=== PATIENT | female | born 1935 | race Caucasian/White ===

== ENCOUNTER 2016-09-10 23:19 | Emergency (ER) | payer OTHER ==
[~2016-09-10 23:19] MED LIST: ACYC5CRE4 TOP; ASPEC81 PO; B-COTAB18 PO; BIOF500T PO; KETO1DRO13 OPB; LEVO112T2 PO; NRN/300 PO; [UNRECOGNIZED DRUG - OTHER] PO
[2016-09-10 23:25] VITALS: TEMP 36.5; Ht 170.2 cm
[2016-09-10 23:29] VITALS: O2SAT 98
--- NOTE | 2016-09-10 23:39 | EMERGENCY ROOM VISIT NOTE ---
History Report prepared by Simeonibpatrick: Aubree Colon Under the Supervision of: Dr. Zheng Mejia M.D. First contact with patient: 23:20 Chief Complaint: ILLNESS Stated Complaint: VOMITING,NAUSEA,WEAKNESS History of Present Illness The patient is a 81 year old female who presents to the Emergency Room with complaints of persistent nausea and vomiting over the past few hours. The patient is under the impression that her symptoms are related to food poisoning. Today, the patient ate mac and cheese, green beans, and cereal with milk. She is unsure if anything that she ate was , as her caregiver makes her meals. Denies chest pain, shortness of breath, abdominal pain, hematemesis, hematochezia, urinary symptoms, or other complaints. Source of History: patient Onset: a few hours ago Position: other (GI) Quality: other (nausea and vomiting) Timing: other (persistent) Associated Symptoms: No SOB, No abdominal pain, No chest pain, No hematochezia, No urinary symptoms Review of Systems See HPI for pertinent positives & negatives. A total of 10 systems reviewed and were otherwise negative. Past Medical & Surgical Medical Problems: (1) Hypertension Nos (2) Varicose Veins Lower Extrem W Other Complications Surgical Problems: (1) History of appendectomy (2) History of hysterectomy Family History Noncontributory secondary to age. Social History Smoking Status: Never Smoker Alcohol Use: none Drug Use: none Marital Status: single Housing Status: snf Occupation Status: retired Current/Historical Medications Scheduled B-Complex Vitamins (Vitamin B Complex), 1 TAB PO DAILY Bioflavonoid Products (Linda-C), 1 TAB PO DAILY Levothyroxine Sodium (Synthroid), 112 MCG PO DAILY@0400 Ondasetron Odt (Zofran Odt), 4 MG SL Q6H Allergies Coded Allergies: Penicillins (Unverified Allergy, Unknown, UNKNOWN, 09/10/16) Anesthetics, Halogenated (Verified Adverse Reaction, Severe, "ANESTHESIA" - PT HAS REVERSE EFFECT, 09/10/16) Physical Exam Vital Signs Date Time Temp Pulse Resp B/P Pulse Ox O2 Delivery O2 Flow Rate FiO2 09/11/16 03:02 95 09/11/16 01:00 83 20 154/68 95 Room Air 09/11/16 00:01 93 18 118/94 98 Room Air 09/10/16 23:34 96 09/10/16 23:29 98 Room Air 09/10/16 23:29 98 Room Air 09/10/16 23:25 36.5 95 18 179/110 95 Room Air Physical Exam GENERAL: Patient is a healthy-appearing well-nourished 81 year old female HEAD: Normocephalic atraumatic EYES: Ocular movements intact pupils equal and react to light OROPHARYNX mucous membranes are moist no exudates present no erythema or edema present NECK: Supple no nuchal rigidity CHEST: Good equal expansion LUNGS: Clear and equal to auscultation CARDIAC: Normal S1 and S2 ABDOMEN: Soft nontender no guarding BACK: No CVA tenderness EXTREMITIES: No pain upon palpation normal muscle strength in all groups no clubbing cyanosis or edema NEURO: Patient is following commands is answering questions appropriately. Alert and oriented x3 Cranial Nerves 2-12 grossly intact Medical Decision & Procedures ER Provider Diagnostic Interpretation: CT results as stated below per my review and radiologist interpretation: CT ABDOMEN & PELVIS: No priors. Prominent fluid within GI tract to level of rectum. Dilated loops of proximal small bowel with decompression of distal small bowel. No discrete transition point is identified through there is gradual tapering of small bowel caliber at distal small bowel. Differential includes ileus/enteritis versus partial obstructive process. Cholelithiasis. Hiatal hernia. Adrenal hyperplasia with questionable mild nodularity in hilar regions. Diverticulosis without diverticulitis. Nonvisualized appendix. Suspect prior appendectomy. Additional chronic/incidental findings. Radiologist: Marshal Lezama MD Laboratory Results 09/10/16 23:35 Red Blood Count 4.65, Mean Corpuscular Volume 90.3, Mean Corpuscular Hemoglobin 31.2, Mean Corpuscular Hemoglobin Concent 34.5, Mean Platelet Volume 10.6, Neutrophils (%) (Auto) 91.7, Lymphocytes (%) (Auto) 3.9, Monocytes (%) (Auto) 3.4, Eosinophils (%) (Auto) 0.6, Basophils (%) (Auto) 0.1, Neutrophils # (Auto) 16.88, Lymphocytes # (Auto) 0.72, Monocytes # (Auto) 0.62, Eosinophils # (Auto) 0.11, Basophils # (Auto) 0.01 09/10/16 23:35 Test 09/10/16 23:35 09/10/16 23:59 09/11/16 00:00 09/11/16 00:02 White Blood Count 18.40 K/uL (4.8-10.8) Red Blood Count 4.65 M/uL (4.2-5.4) Hemoglobin 14.5 g/dL (12.0-16.0) Hematocrit 42.0 % (37-47) Mean Corpuscular Volume 90.3 fL (80-100) Mean Corpuscular Hemoglobin 31.2 pg (25-34) Mean Corpuscular Hemoglobin Concent 34.5 g/dl (32-36) Platelet Count 270 K/uL (130-400) Mean Platelet Volume 10.6 fL (7.4-10.4) Neutrophils (%) (Auto) 91.7 % Lymphocytes (%) (Auto) 3.9 % Monocytes (%) (Auto) 3.4 % Eosinophils (%) (Auto) 0.6 % Basophils (%) (Auto) 0.1 % Neutrophils # (Auto) 16.88 K/uL (1.4-6.5) Lymphocytes # (Auto) 0.72 K/uL (1.2-3.4) Monocytes # (Auto) 0.62 K/uL (0.11-0.59) Eosinophils # (Auto) 0.11 K/uL (0-0.5) Basophils # (Auto) 0.01 K/uL (0-0.2) RDW Standard Deviation 48.5 fL (36.4-46.3) RDW Coefficient of Variation 14.7 % (11.5-14.5) Immature Granulocyte % (Auto) 0.3 % Immature Granulocyte # (Auto) 0.06 K/uL (0.00-0.02) Anion Gap 11.0 mmol/L (3-11) Estimated GFR () 83.2 Estimated GFR (Non- 71.8 BUN/Creatinine Ratio 29.4 (10-20) Calcium Level 9.0 mg/dl (8.5-10.1) Total Bilirubin 0.3 mg/dl (0.2-1) Direct Bilirubin < 0.1 mg/dl (0-0.2) Aspartate Amino Transf (AST/SGOT) 22 U/L (15-37) Alanine Aminotransferase (ALT/SGPT) 38 U/L (12-78) Alkaline Phosphatase 75 U/L (45-117) Total Creatine Kinase 78 U/L (26-192) Creatine Kinase MB 2.6 ng/ml (0.5-3.6) Creatine Kinase MB Ratio 3.3 (0-3.0) Troponin I < 0.015 ng/ml (0-0.045) Total Protein 7.3 gm/dl (6.4-8.2) Albumin 3.6 gm/dl (3.4-5.0) Thyroid Stimulating Hormone (TSH) 4.100 uIu/ml (0.300-4.500) Influenza Type A (RT-PCR) Neg for Influ A (NEG) Influenza Type B (RT-PCR) Neg for Influ B (NEG) Urine Color YELLOW Urine Appearance CLEAR (CLEAR) Urine pH 6.0 (4.5-7.5) Urine Specific [place] > 1.045 (1.000-1.030) Urine Protein NEG (NEG) Urine Glucose (UA) NEG (NEG) Urine Ketones NEG (NEG) Urine Occult Blood NEG (NEG) Urine Nitrite NEG (NEG) Urine Bilirubin NEG (NEG) Urine Urobilinogen NEG (NEG) Urine Leukocyte Esterase NEG (NEG) Bedside Glucose 125 mg/dl (70-90) Labs reviewed by ED physician. Medications Administered Medications (Trade) Dose Ordered Sig/Tabitha Route Start Time Stop Time Status Last Admin Dose Admin Sodium Chloride (Nss 500ml) 500 ml @ 999 mls/hr Q31M STAT IV 09/10/16 23:46 09/11/16 00:16 DC 09/11/16 00:12 999 MLS/HR Ondansetron HCl (Zofran Inj) 4 mg NOW STAT IV 09/10/16 23:46 09/10/16 23:48 DC 09/10/16 23:52 4 MG Metoclopramide HCl (Reglan Inj) 10 mg STK-MED ONCE .ROUTE 09/11/16 01:25 09/11/16 01:26 DC 09/11/16 01:28 10 MG ECG Indication: vomiting Rate (beats per minute): 89 Rhythm: normal sinus Findings: RBBB, no acute ischemic change, no ectopy ED Course 2351: Past medical records reviewed. The patient was evaluated in room B6. A complete history and physical examination was performed. Ordered Zofran Inj 4 mg IV, NSS 500 ml @ 999 mls/hr IV. 0125: Ordered Reglan Inj 10 mg IV. 0230: Upon reexamination the patient is feeling much better. I discussed results and treatment plan with the patient. She verbalizes agreement and understanding. The patient is ready for discharge. 0245: Ordered Ondansetron HCl 1 homepack PO. Medical Decision Differential diagnosis: Etiologies such as gastroenteritis, food borne illness, infections, appendicitis , diverticulitis, inflammatory bowel disease, obstruction, GI bleed, biliary pathology, as well as others were entertained. This is an 81-year-old female who presents emergency department complaining of vomiting. Serial abdominal examinations were performed on the patient in the emergency department and at no time did the patient exhibited a surgical abdomen. An IV was established, the patient given normal saline bolus and 4 mg Zofran. The patient then had further episode of emesis and at this point she was given 10 mg of Reglan. The patient was sent for a CAT scan of the abdomen and pelvis which was concerning for partial small bowel obstruction however I will note that the patient is again nontender on examination and at this point is holding down fluids. The patient was given are juice in the emergency department and was observed for 4 hours. The patient is requesting to go home at this point. She does have an elevation in her white blood count however I believe this is most like due to vomiting. She has a normal EKG as well as normal cardiac proteins. She again had a normal abdominal examination. I encouraged patient to return if she began vomiting again developed any sort of abdominal pain. Patient was in agreement with the treatment plan. Impression Primary Impression: Gastritis Scribe Attestation The scribe's documentation has been prepared under my direction and personally reviewed by me in its entirety. I confirm that the note above accurately reflects all work, treatment, procedures, and medical decision making performed by me. Departure Information Dispostion Home / Self-Care Prescriptions Ondasetron Odt (ZOFRAN ODT) 4 Mg Tab 4 MG SL Q6H for Nausea, #6 TAB Prov: Zheng Mejia MD 09/11/16 Referrals Rochelle Paez (PCP) Patient Instructions ED Diet Vomiting Diarrhea, ED Gastritis, My [facility] Additional Instructions Return if you develops severe abdominal pain or vomiting is out of control Advance diet slowly You have been examined and treated today on an emergency basis only. This is not a substitute for, or an effort to provide, complete comprehensive medical care. It is impossible to recognize and treat all injuries or illnesses in a single emergency department visit. It is therefore important that you follow up closely with your PCP. Call as soon as possible for an appointment. Thank you for your time and consideration. I look forward to speaking with you again soon. Please don't hesitate to call us if you have any questions. Problem Qualifiers Primary Impression: Gastritis Gastritis type: unspecified gastritis Chronicity: acute Gastritis bleeding : without bleeding Qualified Codes: K29.00 - Acute gastritis without bleeding
[2016-09-10] MEDS ORDERED: SODIUM CHLORIDE 0.9% 500ML 500 ML IV STA (23:46)
[2016-09-10] MEDS ORDERED: ONDANSETRON INJ 2 MG/ML 2 ML VIAL IV STA (23:46)
[2016-09-10 23:51] LABS: BASO % 0.1 %; BASO ABS # 0.01 K/uL (0-0.2); COMPLETE YES; EOS % 0.6 %; IG% 0.3 %; LYMPH % 3.9 %; LYMPH ABS # 0.72 K/uL (1.2-3.4); MEAN CELL VOLUME 90.3 fL (80-100); MEAN CORPUSCULAR HEMOGLOBIN 31.2 pg (25-34); MEAN CORPUSCULAR HGB CONC 34.5 g/dl (32-36); MEAN PLATELET VOLUME 10.6 fL (7.4-10.4); MONO % 3.4 %; NEUT % 91.7 %; PLATELET COUNT 270 K/uL (130-400); RED BLOOD COUNT 4.65 M/uL (4.2-5.4)
[2016-09-11 00:11] LABS: ALT/SGPT 38 U/L (12-78); AST/SGOT 22 U/L (15-37); BLOOD UREA NITROGEN 23 mg/dl (7-18); BUN/CREATININE RATIO 29.4 (10-20); CARBON DIOXIDE 27 mmol/L (21-32); CHLORIDE 106 mmol/L (98-107); CREATININE 0.78 mg/dl (0.60-1.20); GLUCOSE 133 mg/dl (70-99); POTASSIUM 3.7 mmol/L (3.5-5.1); SODIUM 144 mmol/L (136-145)
[2016-09-11 00:22] LABS: ALKALINE PHOSPHATASE 75 U/L (45-117); CKMB/CK RATIO 3.3 (0-3.0)
[2016-09-11] MEDS ORDERED: OPTIRAY 320 IV PRN (00:45)
[2016-09-11] MEDS ORDERED: METOCLOPRAMIDE HCL INJ 5 MG/ML 2 ML VIAL IV STA (01:25)
[2016-09-11] MEDS ORDERED: METOCLOPRAMIDE HCL INJ 5 MG/ML 2 ML VIAL ONE (01:25)
[2016-09-11 02:02] LABS: URINE APPEARANCE CLEAR (CLEAR); URINE BILIRUBIN NEG (NEG); URINE COLOR YELLOW; URINE NITRITE NEG (NEG); URINE SPECIFIC GRAVITY > 1.045 (1.000-1.030); UROBILINOGEN NEG (NEG)
[2016-09-11 02:15] LABS: INFLUENZA A PCR Neg for Influ A (NEG); INFLUENZA B PCR Neg for Influ B (NEG)
[2016-09-11 02:23] LABS: MANUAL MICROSCOPIC REQUIRED? NO; REVIEW REQ? NO
[2016-09-11] MEDS ORDERED: ONDA4TAB10 SL (02:36)
[2016-09-11] MEDS ORDERED: ONDANSETRON HOME PACK 4MG OD TAB PO ONE (02:45)
[2016-09-11 03:39] VITALS: BP 154/99; PULSE 75; O2SAT 98
--- NOTE | 2016-09-11 07:49 | DIAGNOSTIC IMAGING REPORT ---
ABDOMEN AND PELVIS CT WITH IV CONTRAST CT DOSE: 1232.84 mGy.cm HISTORY: Generalized abdominal pain. TECHNIQUE: Multiaxial CT images of the abdomen and pelvis were performed following the use of intravenous contrast. COMPARISON STUDY: None. FINDINGS: The lung bases are essentially clear. No pneumoperitoneum. No pneumatosis. No suspicious lytic or blastic osseous lesions. Multiple small gallstones. A 7 mm hypodense lesion within the right hepatic dome. This is too small to characterize but favors a benign cyst. The spleen, adrenal glands, pancreas, and kidneys are unremarkable. No retroperitoneal lymphadenopathy. The bladder is not well-distended but appears unremarkable. The uterus is surgically absent. The appendix appears surgically absent. No bowel wall thickening or obstruction. Colonic diverticulosis. Fluid-filled large and small bowel. Few prominent fluid-filled loops of small bowel within the left upper quadrant are not significant dilated. There is no transition point to suggest an obstruction. IMPRESSION: 1. Fluid-filled loops of large and small bowel. This favors a gastroenteritis. No evidence for bowel obstruction. 2. Cholelithiasis. 3. Diverticulosis. Electronically signed by: Paulo Funes M.D. 09/11/2016 7:46 AM Dictated Date/Time: 09/11/2016 7:42 AM
== END 2016-09-11 03:40 | disposition home or self-care (01) ==
LOC: EDBD 23:19 → C.EDB 23:20
DX: K29.00 Acute gastritis without bleeding (principal); I10 Essential (primary) hypertension; I83.899 Varicose veins of unspecified lower extremity with other complications; Z79.899 Other long term (current) drug therapy

== ENCOUNTER 2017-02-02 16:49 | Emergency (ER) | payer OTHER ==
[~2017-02-02] VITALS: Ht 170.2 cm; Wt 100.0 kg
[~2017-02-02 16:49] MED LIST changes: -ACYC5CRE4 TOP; -ASPEC81 PO; -KETO1DRO13 OPB; -NRN/300 PO; +ONDA4TAB10 SL; -[UNRECOGNIZED DRUG - OTHER] PO
[2017-02-02 16:55] VITALS: TEMP 36.3; Ht 170.2 cm; Wt 100.0 kg
[2017-02-02] MEDS ORDERED: DIAZEPAM INJ 5 MG/ML 2 ML CARP IV STA (17:54)
[2017-02-02 18:22] LABS: BASO % 0.3 %; BASO ABS # 0.03 K/uL (0-0.2); COMPLETE YES; HEMATOCRIT 42.9 % (37-47); IG% 0.3 %; LYMPH % 17.9 %; LYMPH ABS # 1.63 K/uL (1.2-3.4); MEAN CELL VOLUME 91.3 fL (80-100); MEAN CORPUSCULAR HEMOGLOBIN 30.6 pg (25-34); MEAN CORPUSCULAR HGB CONC 33.6 g/dl (32-36); MEAN PLATELET VOLUME 10.1 fL (7.4-10.4); MONO % 5.8 %; NEUT % 74.7 %; PLATELET COUNT 259 K/uL (130-400); WHITE BLOOD COUNT 9.13 K/uL (4.8-10.8)
[2017-02-02] MEDS ORDERED: ACYC5CRE4 TOP (18:27)
[2017-02-02] MEDS ORDERED: ONDA4TAB10 SL (18:27)
[2017-02-02 18:37] LABS: INR 0.9 (0.9-1.1); PROTHROMBIN TIME (PATIENT) 9.6 SECONDS (9.0-12.0)
[2017-02-02 18:45] LABS: ALT/SGPT 27 U/L (12-78); AST/SGOT 21 U/L (15-37); BLOOD UREA NITROGEN 16 mg/dl (7-18); BUN/CREATININE RATIO 26.9 (10-20); CALCIUM 9.4 mg/dl (8.5-10.1); CARBON DIOXIDE 26 mmol/L (21-32); CHLORIDE 107 mmol/L (98-107); CREATININE 0.59 mg/dl (0.60-1.20); GLUCOSE 102 mg/dl (70-99); MAGNESIUM 2.4 mg/dl (1.8-2.4); SODIUM 142 mmol/L (136-145)
[2017-02-02 18:56] LABS: ALKALINE PHOSPHATASE 75 U/L (45-117); PHOSPHORUS 3.1 mg/dl (2.5-4.9)
[2017-02-02 19:20] LABS: URINE APPEARANCE CLEAR (CLEAR); URINE BILIRUBIN NEG (NEG); URINE COLOR YELLOW; URINE NITRITE NEG (NEG); URINE PH 5.5 (4.5-7.5); URINE SPECIFIC GRAVITY 1.013 (1.000-1.030); UROBILINOGEN NEG (NEG)
[2017-02-02 19:22] LABS: MANUAL MICROSCOPIC REQUIRED? NO; REVIEW REQ? NO
--- NOTE | 2017-02-02 19:27 | DIAGNOSTIC IMAGING REPORT ---
HEAD CT NONCONTRAST CT DOSE: 623.48 mGy.cm HISTORY: EVALUATE ALTERED MENTAL STATUS/WEAKNESS TECHNIQUE: Multiaxial CT images of the head were performed without the use of intravenous contrast. Automated exposure control was utilized for this study. Comparison: Head CT 10/18/2014. Findings: The paranasal sinuses and mastoid air cells are clear. The calvarium and skull base are intact. The ventricles and sulci are within normal limits. There is no mass, hematoma, midline shift, or acute infarct. Questionable hypodensities within the inferior temporal lobes and cerebellar hemispheres are likely artifactual. Impression: No acute intracranial abnormality. Electronically signed by: Paulo Funes M.D. 02/02/2017 7:25 PM Dictated Date/Time: 02/02/2017 7:21 PM
[2017-02-02 19:29] VITALS: O2SAT 98
--- NOTE | 2017-02-02 19:35 | DIAGNOSTIC IMAGING REPORT ---
CHEST ONE VIEW PORTABLE HISTORY: EVALUATE ALTERED MENTAL STATUS/WEAKNESS COMPARISON: Chest 10/18/2014. FINDINGS: The lungs are mildly hyperexpanded. Left basilar linear densities likely represent subsegmental atelectasis or scarring. The lungs are otherwise clear. The heart is normal in size. No pleural effusions. No pneumothorax. Severe osteoarthritis within the right shoulder, unchanged. IMPRESSION: No acute process. Electronically signed by: Paulo Funes M.D. 02/02/2017 7:34 PM Dictated Date/Time: 02/02/2017 7:32 PM
[2017-02-02 21:11] VITALS: BP 212/112; PULSE 70; O2SAT 99
--- NOTE | 2017-02-02 21:29 | EMERGENCY ROOM VISIT NOTE ---
History Report prepared by Benito: Jessie Griggs Under the Supervision of: Dr. Ayaan Saul D.O. First contact with patient: 17:43 Chief Complaint: DIZZY Stated Complaint: TREMORS,VERTIGO,NUMBNESS/TINGLING IN RIGHT FOOT Nursing Triage Summary: triage note: pt reports at 1330 sudden onset of dizziness and weakness. pt reports numbness in bilat feet. pt reports she was seen at walk [facility] and sent to ed for further eval. History of Present Illness The patient is an 81 year old female who presents to the Emergency Room with complaints of persistent dizziness starting 4 hours ago. She lives alone and was waiting her caregiver was to come at 1330. She suddenly started feeling a warm sensation in her right leg and she started shaking. She is feeling off balance. She is not falling more to one side or the other. She has a history of vertigo, but she has not been this dizzy before. She notes numbness and tingling in both her feet from the ankles down. 2-3 days ago she started having some cold symptoms. She denies any history of stroke. Source of History: patient Onset: 4 hours ago Position: other (global) Quality: other (dizziness) Timing: other (persistent) Associated Symptoms: + numbness Note: Pt reports shaking, warm sensation in right leg, off balance. Review of Systems See HPI for pertinent positives & negatives. A total of 10 systems reviewed and were otherwise negative. Past Medical & Surgical Medical Problems: (1) Hypertension Nos (2) Varicose Veins Lower Extrem W Other Complications Surgical Problems: (1) History of appendectomy (2) History of hysterectomy Family History Noncontributory secondary to age. Social History Smoking Status: Never Smoker Alcohol Use: none Drug Use: none Marital Status: single [facility] Status: [facility] Occupation Status: retired Current/Historical Medications Scheduled B-Complex Vitamins (Vitamin B Complex), 1 TAB PO DAILY Bioflavonoid Products (Linda-C), 1 TAB PO DAILY Levothyroxine Sodium (Synthroid), 112 MCG PO DAILY@0400 Scheduled PRN Acyclovir Topical (Zovirax), 1 APPLN TOP 5XD PRN for HERPES OUTBREAK Ondasetron Odt (Zofran Odt), 4 MG SL Q6H PRN for Nausea or Vomiting Allergies Coded Allergies: Penicillins (Verified Allergy, Severe, HIVES, 02/02/17) Anesthetics, Halogenated (Verified Adverse Reaction, Severe, "LOWERS B/P" , 02/02/17) Physical Exam Vital Signs Date Time Temp Pulse Resp B/P (MAP) Pulse Ox O2 Delivery O2 Flow Rate FiO2 02/02/17 21:11 70 16 212/112 99 02/02/17 20:19 86 14 02/02/17 20:06 224/98 02/02/17 20:04 77 20 02/02/17 19:49 70 16 02/02/17 19:39 83 02/02/17 19:29 76 217/80 98 80 228/123 82 220/121 02/02/17 19:29 98 Room Air 02/02/17 19:24 220/121 02/02/17 18:29 84 20 206/66 100 02/02/17 16:55 36.3 70 18 94 Room Air Physical Exam GENERAL: Patient is awake, alert, and very anxious, but does not appear to be in pain. EYES: The conjunctivae are clear. The pupils are round and reactive. EARS, NOSE, MOUTH AND THROAT: TMs clear bilaterally. The nose is without any evidence of any deformity. Mucous membranes are moist tongue is midline NECK: The neck is nontender and supple. RESPIRATORY: Normal respiratory effort is noted there is no evidence of wheezing rhonchi or rales CARDIOVASCULAR: Regular rate and rhythm noted there no murmurs rubs or gallops normal S1 normal S2 GASTROINTESTINAL: The abdomen is soft. Bowel sounds are present in all quadrants. Abdomen is nontender MUSCULOSKELETAL/EXTREMITIES: There is no evidence of gross deformity full range of motion is noted in the hips and shoulders SKIN: There is no obvious evidence of any rash. There are no petechiae, pallor or cyanosis noted. NEUROLOGIC: Patient is awake alert and oriented x3, patellar reflexes are 1+ bilaterally, no facial droop, significant tremor, but appears very anxious. Medical Decision & Procedures ER Provider Diagnostic Interpretation: X-ray results as stated below per interpretation by me and the radiologist. Radiology results as stated below per my review and radiologist interpretation: CHEST ONE VIEW PORTABLE HISTORY: EVALUATE ALTERED MENTAL STATUS/WEAKNESS COMPARISON: Chest 10/18/2014. FINDINGS: The lungs are mildly hyperexpanded. Left basilar linear densities likely represent subsegmental atelectasis or scarring. The lungs are otherwise clear. The heart is normal in size. No pleural effusions. No pneumothorax. Severe osteoarthritis within the right shoulder, unchanged. IMPRESSION: No acute process. Electronically signed by: Paulo Funes M.D. 02/02/2017 7:34 PM Dictated Date/Time: 02/02/2017 7:[address]AST CT DOSE: 623.48 mGy.cm HISTORY: EVALUATE ALTERED MENTAL STATUS/WEAKNESS TECHNIQUE: Multiaxial CT images of the head were performed without the use of intravenous contrast. Automated exposure control was utilized for this study. Comparison: Head CT 10/18/2014. Findings: The paranasal sinuses and mastoid air cells are clear. The calvarium and skull base are intact. The ventricles and sulci are within normal limits. There is no mass, hematoma, midline shift, or acute infarct. Questionable hypodensities within the inferior temporal lobes and cerebellar hemispheres are likely artifactual. Impression: No acute intracranial abnormality. Electronically signed by: Paulo Funes M.D. 02/02/2017 7:25 PM Dictated Date/Time: 02/02/2017 7:21 PM Laboratory Results 02/02/17 18:13 Red Blood Count 4.70, Mean Corpuscular Volume 91.3, Mean Corpuscular Hemoglobin 30.6, Mean Corpuscular Hemoglobin Concent 33.6, Mean Platelet Volume 10.1, Neutrophils (%) (Auto) 74.7, Lymphocytes (%) (Auto) 17.9, Monocytes (%) (Auto) 5.8, Eosinophils (%) (Auto) 1.0, Basophils (%) (Auto) 0.3, Neutrophils # (Auto) 6.82, Lymphocytes # (Auto) 1.63, Monocytes # (Auto) 0.53, Eosinophils # (Auto) 0.09, Basophils # (Auto) 0.03 02/02/17 18:13 Test 02/02/17 00:00 02/02/17 18:13 Urine Color YELLOW Urine Appearance CLEAR (CLEAR) Urine pH 5.5 (4.5-7.5) Urine Specific [place] 1.013 (1.000-1.030) Urine Protein NEG (NEG) Urine Glucose (UA) NEG (NEG) Urine Ketones NEG (NEG) Urine Occult Blood NEG (NEG) Urine Nitrite NEG (NEG) Urine Bilirubin NEG (NEG) Urine Urobilinogen NEG (NEG) Urine Leukocyte Esterase NEG (NEG) White Blood Count 9.13 K/uL (4.8-10.8) Red Blood Count 4.70 M/uL (4.2-5.4) Hemoglobin 14.4 g/dL (12.0-16.0) Hematocrit 42.9 % (37-47) Mean Corpuscular Volume 91.3 fL (80-100) Mean Corpuscular Hemoglobin 30.6 pg (25-34) Mean Corpuscular Hemoglobin Concent 33.6 g/dl (32-36) Platelet Count 259 K/uL (130-400) Mean Platelet Volume 10.1 fL (7.4-10.4) Neutrophils (%) (Auto) 74.7 % Lymphocytes (%) (Auto) 17.9 % Monocytes (%) (Auto) 5.8 % Eosinophils (%) (Auto) 1.0 % Basophils (%) (Auto) 0.3 % Neutrophils # (Auto) 6.82 K/uL (1.4-6.5) Lymphocytes # (Auto) 1.63 K/uL (1.2-3.4) Monocytes # (Auto) 0.53 K/uL (0.11-0.59) Eosinophils # (Auto) 0.09 K/uL (0-0.5) Basophils # (Auto) 0.03 K/uL (0-0.2) RDW Standard Deviation 49.6 fL (36.4-46.3) RDW Coefficient of Variation 14.6 % (11.5-14.5) Immature Granulocyte % (Auto) 0.3 % Immature Granulocyte # (Auto) 0.03 K/uL (0.00-0.02) Prothrombin Time 9.6 SECONDS (9.0-12.0) Prothromb Time International Ratio 0.9 (0.9-1.1) Activated Partial Thromboplast Time 25.2 SECONDS (21.0-31.0) Partial Thromboplastin Ratio 1.0 Anion Gap 9.0 mmol/L (3-11) Est Creatinine Clear Calc Drug Dose 92.4 ml/min Estimated GFR () 100.3 Estimated GFR (Non- 86.6 BUN/Creatinine Ratio 26.9 (10-20) Calcium Level 9.4 mg/dl (8.5-10.1) Phosphorus Level 3.1 mg/dl (2.5-4.9) Magnesium Level 2.4 mg/dl (1.8-2.4) Total Bilirubin 0.4 mg/dl (0.2-1) Direct Bilirubin < 0.1 mg/dl (0-0.2) Aspartate Amino Transf (AST/SGOT) 21 U/L (15-37) Alanine Aminotransferase (ALT/SGPT) 27 U/L (12-78) Alkaline Phosphatase 75 U/L (45-117) Troponin I < 0.015 ng/ml (0-0.045) Total Protein 8.2 gm/dl (6.4-8.2) Albumin 4.0 gm/dl (3.4-5.0) Thyroid Stimulating Hormone (TSH) 3.030 uIu/ml (0.300-4.500) Laboratory results per my review. Medications Administered Medications (Trade) Dose Ordered Sig/Tabitha Route Start Time Stop Time Status Last Admin Dose Admin Diazepam (Valium Inj) 2.5 mg NOW STAT IV 02/02/17 17:54 02/02/17 17:55 DC 02/02/17 18:24 2.5 MG ECG Indication: other (dizziness) Rate (beats per minute): 75 Rhythm: normal sinus Findings: RBBB, other (no PVC) Comparison ECG Date: 10-Sep-2016 Change: no significant change ED Course 175: The patient was evaluated in room B5. A complete history and physical examination were performed. 175: Diazepam 2.5 mg IV. 2004: Upon reevaluation, the patient is resting comfortably. I discussed the results and treatment plan with her. She verbalized agreement of the treatment plan. She was discharged home. Medical Decision Prior records/ancillary studies reviewed. Triage Nursing notes reviewed. The patient's history was concerning for dizziness and vertigo. Differential diagnosis: Etiologies such as benign positional vertigo, dehydration, hypovolemia, anemia, tumor, infection, hypoglycemia, electrolyte abnormalities, cardiac sources, intracerebral event, toxicologic, neurologic, as well as others were entertained. Medication Reconciliation: I attest that I have personally reviewed the patient' s current medications list. Blood pressure screening: Patient was found to have an elevated blood pressure and was referred to their primary doctor for recheck and further treatment. The patient is an 81-year-old female who presented to the emergency department for an evaluation of anxiety and vertigo. The patient describes an episode of vertigo which began acutely. She states she has a history of vertigo but states this is somewhat more severe. She had difficulty walking and had severe vertigo as well as anxiety so she presented to the emergency department. The patient did not have any focal neurologic deficit. She was able to ambulate with only minimal assistance. She was treated with Valium in the emergency department. She was reevaluated multiple times. I discussed the patient's laboratory radiographic studies with her. I offered to start her on medications for her blood pressure which was very elevated in the emergency department but she stated it was only because of anxiety and that she has had multiple evaluations by her family doctor with normal blood pressure. She was encouraged to rest and avoid any strenuous activity. I offered to discuss her case with the hospitalist she did not wish to stay in the hospital. She was also encouraged to discuss the possibility that she may require further studies such as a formal MRI or further neuroimaging of the brain. She was also encouraged to return to the emergency apartment immediately if symptoms change worsen or the need arises. Impression Primary Impression: Dizziness Additional Impressions: Vertigo Hypertension Scribe Attestation The scribe's documentation has been prepared under my direction and personally reviewed by me in its entirety. I confirm that the note above accurately reflects all work, treatment, procedures, and medical decision making performed by me. Departure Information Dispostion Home / Self-Care Referrals Rochelle Paez (PCP) Forms HOME CARE DOCUMENTATION FORM, IMPORTANT VISIT INFORMATION Patient Instructions ED Dizziness [facility], Hypertension Luis, My [facility] Additional Instructions follow up with your doctor as soon as possible. continue all medications as prescribed. have your blood pressure rechecked as soon as possible, it was very elevated in the er. Problem Qualifiers Additional Impressions:
== END 2017-02-02 21:12 | disposition home or self-care (01) ==
LOC: C.EDB 16:51
DX: R42 Dizziness and giddiness (principal); I10 Essential (primary) hypertension; I83.90 Asymptomatic varicose veins of unspecified lower extremity

== ENCOUNTER 2017-08-13 21:52 | Emergency (ER) | payer OTHER ==
[~2017-08-13] VITALS: Ht 170.2 cm; Wt 104.8 kg
[~2017-08-13 21:52] MED LIST changes: +ACYC5CRE4 TOP
[2017-08-13 22:12] VITALS: TEMP 36.8; Ht 170.2 cm; Wt 104.8 kg
[2017-08-13] MEDS ORDERED: LEVO112T4 PO (22:29)
[2017-08-13] MEDS ORDERED: SUPPLEMENTS PO (22:29)
[2017-08-13 23:15] VITALS: BP 198/92; PULSE 78; O2SAT 98
--- NOTE | 2017-08-14 01:57 | EMERGENCY ROOM VISIT NOTE ---
History Report prepared by Benito: Zo Bull Under the Supervision of: Dr. Rivera Platt M.D. First contact with patient: 21:54 Stated Complaint: BLEEDING FROM VARICOSE VEIN History of Present Illness The patient is an 81 year old female who presents to the Emergency Room with complaints of an episode of varicose vein bleeding on her right foot starting prior to arrival. The patient states that she was washing her feet after rubbing lotion on when it started. She reports that she applied pressure on it and called the ambulance. She states that it stopped bleeding. The patient complains of foot pain that she has had for a year and treats by rubbing lotion on it. She states that she has had her varicose veins burst before. She notes that she has had bleeding from varicose veins before. She denies bleeding or bruising anywhere else. Pt denies headache, fevers, chills, chest pain, breathing difficulties, nausea, vomiting, abdominal pain, other bleeding, weakness, rash, or other complaints. Source of History: patient Onset: prior to arrival Position: foot (right) Quality: other (neuropathy) Timing: other (episode) Note: The patient denies bleeding or bruising anywhere else. Review of Systems See HPI for pertinent positives and negatives. A total of six systems were reviewed and were otherwise negative. Past Medical & Surgical Medical Problems: (1) Hypertension Nos (2) Varicose Veins Lower Extrem W Other Complications Surgical Problems: (1) History of appendectomy (2) History of hysterectomy Family History No pertinent family history Social History Smoking Status: Never Smoker Alcohol Use: none Drug Use: none Marital Status: single Housing Status: assisted living Occupation Status: retired Current/Historical Medications Scheduled Levothyroxine Sodium (Levothyroxine Sodium), 112 MCG PO DAILY [Supplements], 1 DOSE PO UD Allergies Coded Allergies: Penicillins (Verified Allergy, Severe, HIVES, 02/02/17) Anesthetics, Halogenated (Verified Adverse Reaction, Severe, "LOWERS B/P" , 02/02/17) Physical Exam Vital Signs Date Time Temp Pulse Resp B/P (MAP) Pulse Ox O2 Delivery O2 Flow Rate FiO2 08/13/17 23:15 78 18 198/92 98 08/13/17 22:12 36.8 73 20 244/108 98 Room Air Physical Exam GENERAL: Awake, alert, well-appearing, in no distress MUSCULOSKELETAL: No joint edema. Small punctate wound in the right medial ankle over a varicosity. NEURO: No sensory or motor deficits. SKIN: No petechiae or purpura. Medical Decision & Procedures Procedure TISSUE ADHESIVE REPAIR: Location: Right medial ankle Total length: Punctate wound Complexity: Simple Verbal consent was obtained after the risks and benefits were explained, including but not limited to bleeding, scarring, infection, pain, and bone/joint /nerve damage. At this time, the risks of the procedure are less than the risks of NOT performing the procedure. A time out was taken and the correct patient and site identified. The wound was explored for foreign bodies and none found. Debridement was not performed. The tissue adhesive was applied in the standard fashion. Hemostasis was maintained.signs and symptoms of infection reviewed with the patient. No complications and the patient tolerated the procedure well. ED Course 2154: The patient was evaluated in room B12B. A complete history and physical exam was performed. Discussed results and discharge instructions: She verbalized understanding and agreement. The patient is ready for discharge. Medical Decision The patient was evaluated. Clinical she was doing well. She had a small punctate wound over a varicosity on the ankle. This had stopped bleeding with pressure and was dressed by EMS. Dermabond was utilized in the standard fashion to cover this area and prevent rebleeding. I discussed this with the patient.I gave my usual and customary discussion regarding this issue. There is no sign of infection. The patient was observed and was doing well. Her blood pressure was very elevated but she was quite upset when she first arrived. She had repeat labs performed and was still hypertensive. She was referred for follow-up. Medication Reconcilliation Current Medication List: was personally reviewed by me Blood Pressure Screening Patient's blood pressure: Elevated blood pressure Blood pressure disposition: Elevated BP felt to be situational Impression Primary Impression: Varicose veins with complications Scribe Attestation The scribe's documentation has been prepared under my direction and personally reviewed by me in its entirety. I confirm that the note above accurately reflects all work, treatment, procedures, and medical decision making performed by me. Departure Information Dispostion Home / Self-Care Referrals Rochelle Paez (PCP) Forms HOME CARE DOCUMENTATION FORM, IMPORTANT VISIT INFORMATION Additional Instructions Dermabond skin adhesive was used to close the wound. It should fall off in 5 to 10 days on its own. You do not did not need to keep it bandaged. Do not soak the wound for 8 hours. After 8 hours you may get it wet, but again do not soak it or apply any creams to the area. Bleeding recurs, apply direct pressure for about 20 minutes. If it stops then you are okay. If it does not stop come to the Emergency Room or call 911 for assistance. Return to the ER immediately for continued bleeding, spreading redness, fevers, pus-like drainage, severe pain, or as needed.
== END 2017-08-14 00:12 | disposition home or self-care (01) ==
LOC: EDBD 21:52 → C.EDB 21:53
DX: I83.891 Varicose veins of right lower extremity with other complications (principal); I10 Essential (primary) hypertension; Z90.710 Acquired absence of both cervix and uterus; Z98.890 Other specified postprocedural states; Z79.899 Other long term (current) drug therapy; Z88.0 Allergy status to penicillin

== ENCOUNTER 2017-12-05 15:11 | Emergency (ER) | payer OTHER ==
[~2017-12-05] VITALS: Ht 170.2 cm; Wt 103.5 kg
[~2017-12-05 15:11] MED LIST changes: -ACYC5CRE4 TOP; -B-COTAB18 PO; -BIOF500T PO; -LEVO112T2 PO; +LEVO112T4 PO; -ONDA4TAB10 SL; +SUPPLEMENTS PO
[2017-12-05 15:21] VITALS: TEMP 36.3; Ht 170.2 cm; Wt 103.5 kg
[2017-12-05] MEDS ORDERED: SODIUM CHLORIDE 0.9% 1000ML 500 ML IV STA (15:27)
[2017-12-05] MEDS ORDERED: LORAZEPAM 2 MG/ML 1 ML VIAL IV STA (15:27)
--- NOTE | 2017-12-05 15:28 | EMERGENCY ROOM VISIT NOTE ---
History Report prepared by Benito: Ulysses Call Under the Supervision of: Dr. Allan Interiano M.D. First contact with patient: 15:18 Chief Complaint: ILLNESS Stated Complaint: ILLNESS History of Present Illness The patient is an 82 year old female with a history of seizures who presents to the Emergency Room via EMS from her apartment with complaints of constant shaking that started earlier today. She states that she has been having intermittent shaking "for years", but for the very first time, the shaking has not been stopping at all today. The patient notes that her whole body is shaking. She denies any vomiting, fevers, cough, cold symptoms, or congestion. 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 She adds that she was also exposed to radioactive isotopes at her job years ago. Per the patient's caregiver, the patient was shaking earlier , but was fine and walking around earlier. The patient called 911, and upon EMS arrival, the patient suddenly couldn't stand up. The patient has had a noted increased frequency of urination recently. The patient lives at home on her own but has caregivers visit 6 hours per day. Source of History: patient, caregiver Onset: Earlier today Position: other (global) Symptom Intensity: "nonstop" Quality: other (shaking) Timing: constant Associated Symptoms: + urinary symptoms, No fevers, No cough (or cold symptoms, or congestion), No vomiting Note: No other associated symptoms noted. Review of Systems See HPI for pertinent positives & negatives. A total of 10 systems reviewed and were otherwise negative. Past Medical & Surgical Medical Problems: (1) Hypertension Nos (2) Varicose Veins Lower Extrem W Other Complications Surgical Problems: (1) History of appendectomy (2) History of hysterectomy Family History No pertinent family history Social History Smoking Status: Never Smoker Alcohol Use: none Drug Use: none Marital Status: single Housing Status: assisted living Occupation Status: retired Current/Historical Medications Scheduled Levothyroxine Sodium (Levothyroxine Sodium), 112 MCG PO DAILY Allergies Coded Allergies: Penicillins (Verified Allergy, Severe, HIVES, 12/05/17) Anesthetics, Halogenated (Verified Adverse Reaction, Severe, "LOWERS B/P" , 12/05/17) Physical Exam Vital Signs Date Time Temp Pulse Resp B/P (MAP) Pulse Ox O2 Delivery O2 Flow Rate FiO2 12/05/17 18:46 104 12/05/17 18:11 89 18 178/86 97 Room Air 12/05/17 16:37 94 18 185/89 96 Room Air 12/05/17 15:38 96 Room Air 12/05/17 15:23 88 12/05/17 15:21 36.3 94 18 201/97 96 Room Air Physical Exam GENERAL: Patient is in no acute distress. HEENT: No acute trauma, normocephalic atraumatic, mucous membranes moist, no nasal congestion, no scleral icterus. NECK: No stridor, no adenopathy, no meningismus, trachea is midline. LUNGS: Clear to auscultation bilaterally, no wheeze, no rhonchi, breath sounds equal. HEART: Without murmurs gallops or rubs, regular rate and rhythm. ABDOMEN: Soft, nontender, bowel sounds positive, no hernias, no peritonitis. EXTREMITIES: No cyanosis or edema, full range of motion of all the joints without pain or difficulty, no signs for acute trauma. NEUROLOGIC: Oriented x 3, no acute motor or sensory deficits, no focal weakness. Occasional shaking episodes of the upper extremities noted. No loss of consciousness. SKIN: No rash, no jaundice, no diaphoresis. Medical Decision & Procedures ER Provider Diagnostic Interpretation: Radiology results as stated below per my review and radiologist interpretation: CT HEAD WITHOUT CONTRAST (CT) CLINICAL HISTORY: Acute change in mental status COMPARISON STUDY: 02/02/2017 TECHNIQUE: Axial CT of the brain is performed from the vertex to the skull base. IV contrast was not administered for this examination. A dose lowering technique was utilized adhering to the principles of ALARA. CT DOSE: 844.62 mGy.cm FINDINGS: No intra or extra-axial mass lesions are visualized. There is no CT evidence of acute cortical infarction. There is no evidence of midline shift. There is no acute hemorrhage. No calvarial fractures are visualized. There are patchy white matter hypodensities likely on a small vessel basis. There is no evidence of pathologic ventricular dilatation. There is no evidence of acute sinusitis IMPRESSION: No acute intracranial findings Electronically signed by: Lasha James M.D. 12/05/2017 4:21 PM Dictated Date/Time: 12/05/2017 4:20 PM CHEST ONE VIEW PORTABLE HISTORY: 82 years-old Female EVALUATE ALTERED MENTAL STATUS/WEAKNESS acute altered mental status with weakness COMPARISON: Chest radiograph 02/02/2017 TECHNIQUE: Portable AP view of the chest FINDINGS: Cardiomediastinal and hilar silhouettes are within normal limits. Atherosclerosis of the aorta. Lungs are mildly hyperinflated. No pneumothorax, pleural effusion, focal airspace consolidation or overt pulmonary edema. Unchanged linear subsegmental bibasilar opacities suggest scarring/atelectasis. Degenerative changes of the bilateral shoulders, severe on the right. Degenerative changes of the spine. IMPRESSION: No acute process. The above report was generated using voice recognition software. It may contain grammatical, syntax or spelling errors. Electronically signed by: hNan Harding M.D. 12/05/2017 3:56 PM Dictated Date/Time: 12/05/2017 3:55 PM Laboratory Results 12/05/17 16:41 Red Blood Count 4.26, Mean Corpuscular Volume 93.9, Mean Corpuscular Hemoglobin 31.5, Mean Corpuscular Hemoglobin Concent 33.5, Mean Platelet Volume 10.4, Neutrophils (%) (Auto) 77.4, Lymphocytes (%) (Auto) 14.1, Monocytes (%) (Auto) 6.7, Eosinophils (%) (Auto) 1.1, Basophils (%) (Auto) 0.3, Neutrophils # (Auto) 7.68, Lymphocytes # (Auto) 1.40, Monocytes # (Auto) 0.66, Eosinophils # (Auto) 0.11, Basophils # (Auto) 0.03 12/05/17 16:41 Test 12/05/17 15:26 12/05/17 16:41 Urine Color YELLOW Urine Appearance CLEAR (CLEAR) Urine pH 6.0 (4.5-7.5) Urine Specific [place] 1.011 (1.000-1.030) Urine Protein NEG (NEG) Urine Glucose (UA) NEG (NEG) Urine Ketones NEG (NEG) Urine Occult Blood NEG (NEG) Urine Nitrite NEG (NEG) Urine Bilirubin NEG (NEG) Urine Urobilinogen NEG (NEG) Urine Leukocyte Esterase TRACE (NEG) Urine WBC (Auto) 1-5 /hpf (0-5) Urine RBC (Auto) 0-4 /hpf (0-4) Urine Hyaline Casts (Auto) 0 /lpf (0-5) Urine Epithelial Cells (Auto) 5-10 /lpf (0-5) Urine Bacteria (Auto) NEG (NEG) Urine Opiates Screen NEG (NEG) Urine Methadone, Qualitative NEG (NEG) Urine Barbiturates NEG (NEG) Urine Phencyclidine (PCP) Level NEG (NEG) Ur Amphetamine/Methamphetamine NEG (NEG) MDMA (Ecstasy) Screen NEG (NEG) Urine Benzodiazepines Screen NEG (NEG) Urine Cocaine Metabolite NEG (NEG) Urine Marijuana (THC) NEG (NEG) White Blood Count 9.92 K/uL (4.8-10.8) Red Blood Count 4.26 M/uL (4.2-5.4) Hemoglobin 13.4 g/dL (12.0-16.0) Hematocrit 40.0 % (37-47) Mean Corpuscular Volume 93.9 fL (80-100) Mean Corpuscular Hemoglobin 31.5 pg (25-34) Mean Corpuscular Hemoglobin Concent 33.5 g/dl (32-36) Platelet Count 219 K/uL (130-400) Mean Platelet Volume 10.4 fL (7.4-10.4) Neutrophils (%) (Auto) 77.4 % Lymphocytes (%) (Auto) 14.1 % Monocytes (%) (Auto) 6.7 % Eosinophils (%) (Auto) 1.1 % Basophils (%) (Auto) 0.3 % Neutrophils # (Auto) 7.68 K/uL (1.4-6.5) Lymphocytes # (Auto) 1.40 K/uL (1.2-3.4) Monocytes # (Auto) 0.66 K/uL (0.11-0.59) Eosinophils # (Auto) 0.11 K/uL (0-0.5) Basophils # (Auto) 0.03 K/uL (0-0.2) RDW Standard Deviation 49.8 fL (36.4-46.3) RDW Coefficient of Variation 14.7 % (11.5-14.5) Immature Granulocyte % (Auto) 0.4 % Immature Granulocyte # (Auto) 0.04 K/uL (0.00-0.02) Anion Gap 6.0 mmol/L (3-11) Est Creatinine Clear Calc Drug Dose 95.8 ml/min Estimated GFR () 100.8 Estimated GFR (Non- 86.9 BUN/Creatinine Ratio 30.1 (10-20) Calcium Level 9.3 mg/dl (8.5-10.1) Magnesium Level 2.2 mg/dl (1.8-2.4) Total Bilirubin 0.3 mg/dl (0.2-1) Aspartate Amino Transf (AST/SGOT) 19 U/L (15-37) Alanine Aminotransferase (ALT/SGPT) 26 U/L (12-78) Alkaline Phosphatase 62 U/L (45-117) Total Creatine Kinase 148 U/L (26-192) Troponin I < 0.015 ng/ml (0-0.045) Total Protein 7.1 gm/dl (6.4-8.2) Albumin 3.6 gm/dl (3.4-5.0) Globulin 3.5 gm/dl (2.5-4.0) Albumin/Globulin Ratio 1.0 (0.9-2) Thyroid Stimulating Hormone (TSH) 3.910 uIu/ml (0.300-4.500) Free Thyroxine 1.09 ng/dl (0.80-1.60) Laboratory results reviewed by me. Medications Administered Medications (Trade) Dose Ordered Sig/Tabitha Route Start Time Stop Time Status Last Admin Dose Admin Sodium Chloride 500 ml @ 999 mls/hr Q31M STAT IV 12/05/17 15:27 12/05/17 15:57 DC 12/05/17 15:48 999 MLS/HR Lorazepam (Ativan Inj) 1 mg NOW STAT IV 12/05/17 15:27 12/05/17 15:30 DC 12/05/17 15:48 1 MG Sodium Chloride 500 ml @ 999 mls/hr Q31M STAT IV 12/05/17 17:58 12/05/17 18:28 DC 12/05/17 17:59 999 MLS/HR ECG Per My Interpretation Indication: other (shaking) Rate (beats per minute): 68 Rhythm: normal sinus (with sinus arrhythmia) Findings: RBBB, other (no ST elevation, no PVCs) Change: no significant change (from 02/02/17) ED Course 1518: The patient was evaluated in room B2. A complete history and physical exam was performed. 1527: Ativan Inj 1 mg IV, NSS 500 ml @ 999 mls/hr IV. 1750: I reevaluated the patient and she was happy to hear that we did not find anything concerning, and she feels that she can go home and live in the same circumstances she has been living in. The psych case folder and medical orderly will meet with her. 193: The patient was seen by case management and psych case management, and they both felt the patient was stable for discharge. The patient is agreeable with this plan. 194: Reevaluated the patient. Discussed results and discharge instructions: she verbalized understanding and agreement. The patient is ready for discharge. Medical Decision Differential diagnosis includes but is not limited to psychosis, UTI, dehydration, electrolyte imbalance, intracranial bleeding, stroke, medication reaction. There is no leukocytosis or concerning anemia. No significant electrolyte abnormality, kidney failure or hepatitis. Urinalysis does not show infection. The patient appears to be in a euthyroid state. Urine tox is negative. EKG shows a sinus rhythm, no acute ischemic change. Cardiac enzyme testing 1 is not consistent with acute cardiac injury. Chest film does not show pneumonia or CHF. Brain CT shows no acute bleed or mass-effect. On exam, there were no focal neurologic deficits. There was no true seizure activity. The patient had episodes of arm shaking but she was awake and alert and they were very brief. The patient did seem quite anxious. The patient received IV saline, she was given IV Ativan. She has done well. I find nothing medically worrisome by workup. The patient was reassured. I did have the patient seen by case management as well as psychiatry case management. Patient does not meet criteria for a psychiatric hospital stay. She is comfortable with discharge back to her residence with the continued care through home services as before. No change in medications. The patient will follow with her doctors office this week for a recheck. I encouraged her to have her blood pressure rechecked as it was slightly high here. The cause for her presentation is unclear but may be anxiety related. Medication Reconcilliation Current Medication List: was personally reviewed by me Blood Pressure Screening Patient's blood pressure: Elevated blood pressure Blood pressure disposition: Referred to PCP Impression Primary Impression: Episode of shaking Additional Impression: Anxiety Scribe Attestation The scribe's documentation has been prepared under my direction and personally reviewed by me in its entirety. I confirm that the note above accurately reflects all work, treatment, procedures, and medical decision making performed by me. Departure Information Dispostion Home / Self-Care Referrals Rochelle Paez (PCP) Patient Instructions My [facility] Additional Instructions care as before all lab testing and imaging was ok today return for worsening symptoms see your doctor for a reheck this week your blood pressure was elevated here, have the pressure rechecked by your doctor's office Problem Qualifiers
[2017-12-05 15:38] VITALS: O2SAT 96
--- NOTE | 2017-12-05 15:58 | DIAGNOSTIC IMAGING REPORT ---
CHEST ONE VIEW PORTABLE HISTORY: 82 years-old Female EVALUATE ALTERED MENTAL STATUS/WEAKNESS acute altered mental status with weakness COMPARISON: Chest radiograph 02/02/2017 TECHNIQUE: Portable AP view of the chest FINDINGS: Cardiomediastinal and hilar silhouettes are within normal limits. Atherosclerosis of the aorta. Lungs are mildly hyperinflated. No pneumothorax, pleural effusion, focal airspace consolidation or overt pulmonary edema. Unchanged linear subsegmental bibasilar opacities suggest scarring/atelectasis. Degenerative changes of the bilateral shoulders, severe on the right. Degenerative changes of the spine. IMPRESSION: No acute process. The above report was generated using voice recognition software. It may contain grammatical, syntax or spelling errors. Electronically signed by: Nhan Harding M.D. 12/05/2017 3:56 PM Dictated Date/Time: 12/05/2017 3:55 PM
--- NOTE | 2017-12-05 16:23 | DIAGNOSTIC IMAGING REPORT ---
CT HEAD WITHOUT CONTRAST (CT) CLINICAL HISTORY: Acute change in mental status COMPARISON STUDY: 02/02/2017 TECHNIQUE: Axial CT of the brain is performed from the vertex to the skull base. IV contrast was not administered for this examination. A dose lowering technique was utilized adhering to the principles of ALARA. CT DOSE: 844.62 mGy.cm FINDINGS: No intra or extra-axial mass lesions are visualized. There is no CT evidence of acute cortical infarction. There is no evidence of midline shift. There is no acute hemorrhage. No calvarial fractures are visualized. There are patchy white matter hypodensities likely on a small vessel basis. There is no evidence of pathologic ventricular dilatation. There is no evidence of acute sinusitis IMPRESSION: No acute intracranial findings Electronically signed by: Lasha James M.D. 12/05/2017 4:21 PM Dictated Date/Time: 12/05/2017 4:20 PM
[2017-12-05 17:01] LABS: BASO % 0.3 %; BASO ABS # 0.03 K/uL (0-0.2); EOS % 1.1 %; EOS ABS # 0.11 K/uL (0-0.5); HEMOGLOBIN 13.4 g/dL (12.0-16.0); IG# 0.04 K/uL (0.00-0.02); LYMPH % 14.1 %; MEAN CELL VOLUME 93.9 fL (80-100); MEAN CORPUSCULAR HEMOGLOBIN 31.5 pg (25-34); MEAN CORPUSCULAR HGB CONC 33.5 g/dl (32-36); MEAN PLATELET VOLUME 10.4 fL (7.4-10.4); MONO % 6.7 %; MONO ABS # 0.66 K/uL (0.11-0.59); NEUT % 77.4 %; NEUT ABS # 7.68 K/uL (1.4-6.5); PLATELET COUNT 219 K/uL (130-400); RED CELL DISTRIBUTION WIDTH CV 14.7 % (11.5-14.5); RED CELL DISTRIBUTION WIDTH SD 49.8 fL (36.4-46.3); WHITE BLOOD COUNT 9.92 K/uL (4.8-10.8)
[2017-12-05 17:32] LABS: ALBUMIN 3.6 gm/dl (3.4-5.0); ALT/SGPT 26 U/L (12-78); AST/SGOT 19 U/L (15-37); BLOOD UREA NITROGEN 17 mg/dl (7-18); CALCIUM 9.3 mg/dl (8.5-10.1); CARBON DIOXIDE 25 mmol/L (21-32); CREATININE 0.57 mg/dl (0.60-1.20); GLUCOSE 104 mg/dl (70-99); POTASSIUM 4.4 mmol/L (3.5-5.1); SODIUM 139 mmol/L (136-145)
[2017-12-05 17:40] LABS: ALKALINE PHOSPHATASE 62 U/L (45-117); TOTAL PROTEIN 7.1 gm/dl (6.4-8.2)
[2017-12-05] MEDS ORDERED: SODIUM CHLORIDE 0.9% 500ML 500 ML IV STA (17:58)
[2017-12-05 20:11] VITALS: BP 140/78; PULSE 92; O2SAT 97
== END 2017-12-05 20:45 | disposition home or self-care (01) ==
LOC: C.EDB 15:11
DX: G20 Parkinson's disease (principal); F41.9 Anxiety disorder, unspecified; I10 Essential (primary) hypertension; Z88.0 Allergy status to penicillin; Z88.8 Allergy status to other drugs, medicaments and biological substances

== ENCOUNTER 2017-12-09 09:19 | Emergency (ER) | payer OTHER ==
[~2017-12-09 09:19] MED LIST changes: -SUPPLEMENTS PO
[2017-12-09 09:21] VITALS: TEMP 36.9
[2017-12-09] MEDS ORDERED: LORAZEPAM 2 MG/ML 1 ML VIAL IV STA (10:59)
[2017-12-09] MEDS ORDERED: SODIUM CHLORIDE 0.9% 1000ML 1,000 ML IV STA (10:59)
[2017-12-09 11:32] LABS: BASO % 0.2 %; BASO ABS # 0.02 K/uL (0-0.2); EOS % 0.5 %; EOS ABS # 0.05 K/uL (0-0.5); HEMATOCRIT 42.8 % (37-47); HEMOGLOBIN 14.5 g/dL (12.0-16.0); IG# 0.02 K/uL (0.00-0.02); LYMPH % 12.3 %; MEAN CELL VOLUME 93.9 fL (80-100); MEAN CORPUSCULAR HEMOGLOBIN 31.8 pg (25-34); MEAN CORPUSCULAR HGB CONC 33.9 g/dl (32-36); MONO % 5.6 %; MONO ABS # 0.59 K/uL (0.11-0.59); NEUT % 81.2 %; PLATELET COUNT 275 K/uL (130-400); RED CELL DISTRIBUTION WIDTH CV 14.6 % (11.5-14.5); RED CELL DISTRIBUTION WIDTH SD 49.8 fL (36.4-46.3); WHITE BLOOD COUNT 10.58 K/uL (4.8-10.8)
[2017-12-09 11:49] LABS: BLOOD UREA NITROGEN 16 mg/dl (7-18); CALCIUM 10.1 mg/dl (8.5-10.1); CARBON DIOXIDE 30 mmol/L (21-32); CREATININE 0.74 mg/dl (0.60-1.20); GLUCOSE 118 mg/dl (70-99); SODIUM 138 mmol/L (136-145)
--- NOTE | 2017-12-09 12:06 | EMERGENCY ROOM VISIT NOTE ---
History First contact with patient: 10:46 Chief Complaint: OTHER COMPLAINT Stated Complaint: VERTIGO History of Present Illness The patient is a 82 year old female who presents to the Emergency Room via BLS with complaints of ago and shaking. The patient states that she has a homeopath and does not take any MD medicine since she is allergic to the mom. She states this is since the age of 7. The patient states that she was seen here several days ago and wants to know what the results were that her caregiver never got the results. She states that there was "3 things" that she needed to know. Patient denies any headache, chest pain, shortness of breath, abdominal pain, urinary symptoms. The patient is seen by neurology for her neuropathy. The patient denies any recent URI symptoms. Review of Systems 10 system review was performed and was negative unless stated otherwise history of present illness. Past Medical/Surgical History Medical Problems: (1) Hypertension Nos (2) Varicose Veins Lower Extrem W Other Complications Surgical Problems: (1) History of appendectomy (2) History of hysterectomy Family History No pertinent family history Social History Smoking Status: Never Smoker Alcohol Use: none Drug Use: none Marital Status: single Housing Status: assisted living Occupation Status: retired Current/Historical Medications Scheduled Levothyroxine Sodium (Levothyroxine Sodium), 112 MCG PO DAILY Physical Exam Vital Signs Date Time Temp Pulse Resp B/P (MAP) Pulse Ox O2 Delivery O2 Flow Rate FiO2 12/09/17 10:13 77 16 186/77 97 Room Air 12/09/17 09:32 83 12/09/17 09:21 36.9 76 18 164/87 94 Room Air Physical Exam GENERAL: 82-year-old white female appears in no acute distress. She is flailing her arms intermittently saying "oh my God oh my God" Mental STATUS: Alert and oriented to person place and time. She is answering questions appropriately. She does not appear tearful she does appear very anxious. EYES: PERRLA. EOMs intact. EARS: Canals clear. TMs without fluid level noted. NECK: Supple, no lymphadenopathy noted. No carotid bruits noted. LUNGS: Clear auscultation without wheezes rales or rhonchi. CARDIAC: Regular rate and rhythm without murmur. Pulses is full and equal throughout. ABDOMEN: Positive bowel sounds all 4 quadrants. Soft, nontender to palpation without organomegaly or masses. NEURO: Grossly intact Medical Decision & Procedures Laboratory Results 12/09/17 11:25 Red Blood Count 4.56, Mean Corpuscular Volume 93.9, Mean Corpuscular Hemoglobin 31.8, Mean Corpuscular Hemoglobin Concent 33.9, Mean Platelet Volume 10.0, Neutrophils (%) (Auto) 81.2, Lymphocytes (%) (Auto) 12.3, Monocytes (%) (Auto) 5.6, Eosinophils (%) (Auto) 0.5, Basophils (%) (Auto) 0.2, Neutrophils # (Auto) 8.60, Lymphocytes # (Auto) 1.30, Monocytes # (Auto) 0.59, Eosinophils # (Auto) 0.05, Basophils # (Auto) 0.02 12/09/17 11:25 Test 12/09/17 11:14 12/09/17 11:25 Urine Color YELLOW Urine Appearance CLEAR (CLEAR) Urine pH 6.5 (4.5-7.5) Urine Specific [place] 1.018 (1.000-1.030) Urine Protein NEG (NEG) Urine Glucose (UA) NEG (NEG) Urine Ketones NEG (NEG) Urine Occult Blood NEG (NEG) Urine Nitrite NEG (NEG) Urine Bilirubin NEG (NEG) Urine Urobilinogen NEG (NEG) Urine Leukocyte Esterase MODERATE (NEG) Urine WBC (Auto) 5-10 /hpf (0-5) Urine RBC (Auto) 0-4 /hpf (0-4) Urine Hyaline Casts (Auto) 0 /lpf (0-5) Urine Epithelial Cells (Auto) >30 /lpf (0-5) Urine Bacteria (Auto) NEG (NEG) White Blood Count 10.58 K/uL (4.8-10.8) Red Blood Count 4.56 M/uL (4.2-5.4) Hemoglobin 14.5 g/dL (12.0-16.0) Hematocrit 42.8 % (37-47) Mean Corpuscular Volume 93.9 fL (80-100) Mean Corpuscular Hemoglobin 31.8 pg (25-34) Mean Corpuscular Hemoglobin Concent 33.9 g/dl (32-36) Platelet Count 275 K/uL (130-400) Mean Platelet Volume 10.0 fL (7.4-10.4) Neutrophils (%) (Auto) 81.2 % Lymphocytes (%) (Auto) 12.3 % Monocytes (%) (Auto) 5.6 % Eosinophils (%) (Auto) 0.5 % Basophils (%) (Auto) 0.2 % Neutrophils # (Auto) 8.60 K/uL (1.4-6.5) Lymphocytes # (Auto) 1.30 K/uL (1.2-3.4) Monocytes # (Auto) 0.59 K/uL (0.11-0.59) Eosinophils # (Auto) 0.05 K/uL (0-0.5) Basophils # (Auto) 0.02 K/uL (0-0.2) RDW Standard Deviation 49.8 fL (36.4-46.3) RDW Coefficient of Variation 14.6 % (11.5-14.5) Immature Granulocyte % (Auto) 0.2 % Immature Granulocyte # (Auto) 0.02 K/uL (0.00-0.02) Anion Gap 7.0 mmol/L (3-11) Estimated GFR () 88.1 Estimated GFR (Non- 76.0 BUN/Creatinine Ratio 21.8 (10-20) Calcium Level 10.1 mg/dl (8.5-10.1) Medications Administered Medications (Trade) Dose Ordered Sig/Tabitha Route Start Time Stop Time Status Last Admin Dose Admin Lorazepam (Ativan Inj) 1 mg NOW STAT IV 12/09/17 10:59 12/09/17 11:02 DC 12/09/17 11:31 1 MG Sodium Chloride 1,000 ml @ 999 mls/hr Q1H1M STAT IV 12/09/17 10:59 12/09/17 11:59 DC 12/09/17 11:31 999 MLS/HR ED Course The patient was evaluated. The patient's EMR medication list were reviewed. The patient was just seen here 4 days ago for this same symptoms. She received some Ativan which did help with her anxiety. She had a CAT scan of her head which was negative for any acute process. Urinalysis was negative. Labs are unremarkable. She also was evaluated by the case advocate as well as psychiatry and they did not feel that she needed to be admitted. IV access was obtained. The patient was given normal saline wide open. She did agree to receiving Ativan 1 g IV since I told her she had a last time and she did not have any real allergic reaction. CBC differential, renal profile was ordered. Labs are reviewed and were unremarkable. Urinalysis was negative. Patient was reevaluated after receiving the Ativan in she was sitting upright eating her lunch and was not agitated. She was not complaining of any dizziness. She states that "the toxins left her body". The patient was independently evaluated by Dr. Knutson who agrees with treatment plan. The patient was discharged home in stable condition. Medical Decision I feel that the patient's symptoms may be psychosomatic although she has already been evaluated by psych. I did not repeat a CT scan since she had one just 4 days ago. I do feel that she would benefit some with Ativan on a as needed basis for her agitation. [place] Drug Monitoring Program Search Results: patient reviewed within database Medication Reconcilliation Current Medication List: was personally reviewed by me Blood Pressure Screening Patient's blood pressure: Elevated blood pressure Blood pressure disposition: Elevated BP felt to be situational Impression Primary Impression: Vertigo Additional Impression: Agitation Departure Information Dispostion Home / Self-Care Condition GOOD Referrals No Doctor, Assigned (PCP) Forms HOME CARE DOCUMENTATION FORM, IMPORTANT VISIT INFORMATION, WORK / SCHOOL INSTRUCTIONS Patient Instructions My [facility] Additional Instructions Recommend follow-up with neurologist. Possible prescription for Ativan on an as -needed basis by neurology if they feel this is indicated. Keep well-hydrated. Problem Qualifiers
--- NOTE | 2017-12-09 12:56 | EMERGENCY ROOM VISIT NOTE ---
ED Visit Note First contact with patient: 10:46 I have personally seen and evaluated the patient with the PA. I agree with the diagnosis and management decisions and have been personally involved in the case. Please see Cherelle Leblanc PA-C's notes for further details of the history, physical and visit.
[2017-12-09 13:12] VITALS: BP 190/83; PULSE 84; O2SAT 97
== END 2017-12-09 13:12 | disposition home or self-care (01) ==
LOC: EDBD 09:21 → C.EDC 09:23
DX: R42 Dizziness and giddiness (principal); R45.1 Restlessness and agitation; F41.9 Anxiety disorder, unspecified; I10 Essential (primary) hypertension; I83.899 Varicose veins of unspecified lower extremity with other complications

== ENCOUNTER 2021-08-17 10:23 | Inpatient (IN) ==
[2021-08-17] MEDS ORDERED: LORazepam 0.5 MG/1 ML VIAL IV STA ×2 (10:54→13:07)
--- NOTE | 2021-08-17 11:01 | Emergency Department Note ---
History of Present Illness General Chief complaint: Anxiety Stated complaint: ANXIETY Time Seen by Provider: 08/17/21 10:40 Source: patient and EMS Mode of arrival: EMS Limitations: altered mental status History of Present Illness Provider complaint: "My body ceased functioning" This is an 85-year-old female with a history of bipolar disorder and anxiety presenting with agitation today. She called the ambulance and states that her body stopped functioning. She apparently walked to the bathroom when EMS was there but when she would not get out of the bathroom and they had to coax her for about 30 minutes to get her onto the stretcher. She lives by herself and has caretakers but EMS states that they have not been coming over because she is not vaccinated. She apparently had an entire wall filled with newspaper articles about murders and had writing all over the articles as well. The patient will not answer any further questions. She perseverates about putting the bed rail down despite telling her that we cannot put it down for her safety. She picks at the blankets. At one point she asked for it but then she wanted it folded back up. History is very limited due to her agitation. Home Medications Medication Instructions Recorded Confirmed Type Supplements See Rx Instructions .ROUTE .COMPLEX 03/31/19 08/17/21 History levothyroxine 125 mcg tablet 125 mcg PO QAM 03/31/19 08/17/21 History Allergies Allergy/AdvReac Type Severity Reaction Status Date / Time Penicillins Allergy Severe HIVES Verified 08/17/21 12:48 Anesthetics, Halogenated AdvReac Severe "LOWERS Uncoded 08/17/21 12:48 B/P" Past Med/Surg History Medical History (Updated 08/17/21 @ 17:46 by Bishop Navarrete MD) Anxiety related tremor CVA (cerebrovascular accident) Hypothyroid Memory impairment Neuropathy Tremor Surgical History History of oophorectomy History of tonsillectomy and adenoidectomy Status post appendectomy Family History Other Family history non-contributory Social History Smoking Status: Never smoker Hx Alcohol Use: No Preferred Language: French Communication Ability: Effective Hearing Ability: Normal Beliefs That Will Affect Care: None marital status: Current Living Situation: Alone current occupational status: retired Feels Safe at Home: Yes Review of Systems See HPI for pertinent positives & negatives. Unobtainable due to cognitive status Physical Exam Vital Signs Vital Signs - 24 hr 08/17/21 10:14 08/17/21 10:27 08/17/21 10:32 Temperature 36.8 C 36.7 C Temperature Source Oral Temporal Artery Scan Pulse Rate 122 H Pulse Rate [Left Finger] 103 H Pulse Rate from SpO2 Sensor Pulse Rhythm [Left Finger] Regular Pulse Strength [Left Finger] Respiratory Rate 20 22 Respiratory Effort / Characteristics Non-Labored Respiratory Depth Normal Blood Pressure Blood Pressure [Left Arm] 130/60 Blood Pressure Mean Blood Pressure Mean [Left Arm] 83 Blood Pressure Position [Left Arm] Lying Pulse Oximetry 96 95 Oxygen Delivery Method Room Air Room Air Oxygen Flow Rate 96 Sepsis Recent Fever Within 48 Hours No Sepsis New/Unexplained Change in Mental Status No Sepsis Action Taken by Nursing No Action Required 08/17/21 11:19 08/17/21 11:20 08/17/21 11:30 Temperature Temperature Source Pulse Rate 105 H 104 H 103 H Pulse Rate [Left Finger] Pulse Rate from SpO2 Sensor 105 H 102 H 102 H Pulse Rhythm [Left Finger] Pulse Strength [Left Finger] Respiratory Rate 17 29 H 25 H Respiratory Effort / Characteristics Respiratory Depth Blood Pressure Blood Pressure [Left Arm] Blood Pressure Mean Blood Pressure Mean [Left Arm] Blood Pressure Position [Left Arm] Pulse Oximetry 98 96 98 Oxygen Delivery Method Oxygen Flow Rate Sepsis Recent Fever Within 48 Hours Sepsis New/Unexplained Change in Mental Status Sepsis Action Taken by Nursing 08/17/21 11:40 08/17/21 11:59 08/17/21 12:00 Temperature Temperature Source Pulse Rate 99 H 98 H 93 H Pulse Rate [Left Finger] Pulse Rate from SpO2 Sensor 101 H Pulse Rhythm [Left Finger] Pulse Strength [Left Finger] Respiratory Rate 16 17 16 Respiratory Effort / Characteristics Respiratory Depth Blood Pressure Blood Pressure [Left Arm] Blood Pressure Mean Blood Pressure Mean [Left Arm] Blood Pressure Position [Left Arm] Pulse Oximetry 97 Oxygen Delivery Method Oxygen Flow Rate Sepsis Recent Fever Within 48 Hours Sepsis New/Unexplained Change in Mental Status Sepsis Action Taken by Nursing 08/17/21 12:10 08/17/21 12:20 08/17/21 12:27 Temperature Temperature Source Pulse Rate 102 H 96 H Pulse Rate [Left Finger] 105 H Pulse Rate from SpO2 Sensor 106 H 99 H Pulse Rhythm [Left Finger] Regular Pulse Strength [Left Finger] Normal Respiratory Rate 16 25 H 18 Respiratory Effort / Characteristics Non-Labored Spontaneous Respiratory Depth Normal Blood Pressure Blood Pressure [Left Arm] 118/80 Blood Pressure Mean Blood Pressure Mean [Left Arm] 92 Blood Pressure Position [Left Arm] Lying Pulse Oximetry 97 97 99 Oxygen Delivery Method Room Air Oxygen Flow Rate Sepsis Recent Fever Within 48 Hours Sepsis New/Unexplained Change in Mental Status Sepsis Action Taken by Nursing 08/17/21 12:30 08/17/21 12:49 08/17/21 12:50 Temperature Temperature Source Pulse Rate 102 H 114 H 112 H Pulse Rate [Left Finger] Pulse Rate from SpO2 Sensor 100 H 114 H 113 H Pulse Rhythm [Left Finger] Pulse Strength [Left Finger] Respiratory Rate 17 18 25 H Respiratory Effort / Characteristics Respiratory Depth Blood Pressure Blood Pressure [Left Arm] Blood Pressure Mean Blood Pressure Mean [Left Arm] Blood Pressure Position [Left Arm] Pulse Oximetry 95 96 97 Oxygen Delivery Method Oxygen Flow Rate Sepsis Recent Fever Within 48 Hours Sepsis New/Unexplained Change in Mental Status Sepsis Action Taken by Nursing 08/17/21 12:52 08/17/21 13:00 08/17/21 13:10 Temperature Temperature Source Pulse Rate 95 H 109 H 123 H Pulse Rate [Left Finger] Pulse Rate from SpO2 Sensor 98 H 112 H 122 H Pulse Rhythm [Left Finger] Pulse Strength [Left Finger] Respiratory Rate 16 21 21 Respiratory Effort / Characteristics Respiratory Depth Blood Pressure 118/80 130/107 H Blood Pressure [Left Arm] Blood Pressure Mean 92 114 Blood Pressure Mean [Left Arm] Blood Pressure Position [Left Arm] Pulse Oximetry 97 97 98 Oxygen Delivery Method Oxygen Flow Rate Sepsis Recent Fever Within 48 Hours Sepsis New/Unexplained Change in Mental Status Sepsis Action Taken by Nursing 08/17/21 13:20 08/17/21 13:30 08/17/21 13:35 Temperature Temperature Source Pulse Rate 113 H 113 H 132 H Pulse Rate [Left Finger] Pulse Rate from SpO2 Sensor 114 H 102 H 134 H Pulse Rhythm [Left Finger] Pulse Strength [Left Finger] Respiratory Rate 17 27 H Respiratory Effort / Characteristics Respiratory Depth Blood Pressure 119/66 Blood Pressure [Left Arm] Blood Pressure Mean 83 Blood Pressure Mean [Left Arm] Blood Pressure Position [Left Arm] Pulse Oximetry 97 96 92 Oxygen Delivery Method Room Air Oxygen Flow Rate Sepsis Recent Fever Within 48 Hours Sepsis New/Unexplained Change in Mental Status Sepsis Action Taken by Nursing 08/17/21 13:40 08/17/21 14:02 08/17/21 14:10 Temperature Temperature Source Pulse Rate 126 H 109 H 126 H Pulse Rate [Left Finger] Pulse Rate from SpO2 Sensor 127 H Pulse Rhythm [Left Finger] Pulse Strength [Left Finger] Respiratory Rate 22 27 H 33 H Respiratory Effort / Characteristics Respiratory Depth Blood Pressure 134/49 L Blood Pressure [Left Arm] Blood Pressure Mean 77 Blood Pressure Mean [Left Arm] Blood Pressure Position [Left Arm] Pulse Oximetry 99 Oxygen Delivery Method Oxygen Flow Rate Sepsis Recent Fever Within 48 Hours Sepsis New/Unexplained Change in Mental Status Sepsis Action Taken by Nursing 08/17/21 14:20 08/17/21 14:30 08/17/21 15:01 Temperature Temperature Source Pulse Rate 132 H 117 H 136 H Pulse Rate [Left Finger] Pulse Rate from SpO2 Sensor Pulse Rhythm [Left Finger] Pulse Strength [Left Finger] Respiratory Rate 15 22 33 H Respiratory Effort / Characteristics Respiratory Depth Blood Pressure Blood Pressure [Left Arm] Blood Pressure Mean Blood Pressure Mean [Left Arm] Blood Pressure Position [Left Arm] Pulse Oximetry Oxygen Delivery Method Oxygen Flow Rate Sepsis Recent Fever Within 48 Hours Sepsis New/Unexplained Change in Mental Status Sepsis Action Taken by Nursing Constitutional: Vital signs reviewed. Does not follow all commands. Eyes: Pupils are equal round reactive to light. Conjunctiva are noninjected. ENT: Mucous membranes are moist. Neck supple without meningeal signs. Respiratory: Clear to auscultation bilaterally. Breath sounds are equal bilaterally. Cardiovascular: Tachycardic. Regular rhythm. GI: Soft, nondistended and nontender. Bowel sounds are present. Musculoskeletal: No peripheral edema. No lower extremity tenderness. Integumentary: No cyanosis. or jaundice. Neurological: The patient is awake and alert. Moves all extremities. No facial droop. Psychiatric: Extremely anxious and agitated. Course Administered Medications Sodium Chloride (Nss 1000ml) 500 mls @ 80 mls/hr IV .[id number] [facility] Stop: 09/16/21 15:09 Last Admin: 08/17/21 17:22 Dose: 80 mls/hr Documented by: [id number] Discontinued Medications Lorazepam (Ativan) 0.5 mg in 1 mls @ 1 mls/min IV NOW STA Stop: 12/29/21 10:55 Last Admin: 08/17/21 11:10 Dose: 1 mls/min Documented by: [id number] Lorazepam (Ativan) 0.5 mg in 1 mls @ 1 mls/min IV NOW STA Stop: 08/17/21 13:08 Last Admin: 08/17/21 13:22 Dose: 1 mls/min Documented by: [id number] Sodium Chloride (Nss 1000ml) 250 mls @ 999 mls/hr IV .Q16M ONE Stop: 08/17/21 15:25 Last Infusion: 08/17/21 17:28 Dose: 0 mls/hr Documented by: [id number] Admin: 08/17/21 16:31 Dose: 999 mls/hr Documented by: [id number] Critical Care Time Critical Care Time: Yes Total Critical Care Time: 35 I have personally spent approximately 35 minutes of critical care time in the direct management of this patient. This includes bedside care, interpretation of diagnostic studies, and testing, discussion with consultants, patient, and family members, and other required patient management activities. These minutes are in excess of all separately billable procedures. Medical Decision Making Differential Diagnosis Thought disorder, psychosis, delirium, dementia, intracranial hemorrhage, metabolic derangement, bipolar disorder Medical Records Attestation: I reviewed the patient's medical records. I did perform a limited focused review of portions of the patient's old chart on the electronic medical record. The patient has had no recent pertinent visits to this hospital. On her previous records from neurology and primary care she was noted to have memory impairment, tremors and neuropathy. She did have a mini cognitive test and scored a 25 out of 30 in 2019. She was noted to have a history of anxiety and bipolar disorder and is followed by psychiatry. Home Medications Current Medication List: was personally reviewed by me Laboratory Data Attestation: I reviewed the patient's lab results. Result diagrams: 08/17/21 11:08 08/17/21 11:08 Lab Results 08/17/21 08/17/21 08/17/21 Range/Units 11:08 11:08 11:08 WBC 12.59 H (4.8-10.8) K/uL RBC 4.19 L (4.2-5.4) M/uL Hgb 12.7 (12.0-16.0) g/dL Hct 37.1 (37-47) % MCV 88.5 (80-100) fL MCH 30.3 (25-34) pg MCHC 34.2 (32-36) g/dL RDW Std Deviation 48.7 H (36.4-46.3) fL RDW Coeff of Doris 15.1 H (11.5-14.5) % Plt Count 307 (130-400) K/uL MPV 10.7 H (7.4-10.4) fL Immature Gran % (Auto) 0.3 % Neut % (Auto) 76.9 % Lymph % (Auto) 9.9 % [place] % (Auto) 12.8 % Eos % (Auto) 0.0 % Baso % (Auto) 0.1 % Neut # (Auto) 9.68 H (1.4-6.5) K/uL Lymph # (Auto) 1.25 (1.2-3.4) K/uL [place] # (Auto) 1.61 H (0.11-0.59) K/uL Eos # (Auto) 0.00 (0-0.5) K/uL Baso # (Auto) 0.01 (0-0.2) K/uL Immature Gran # (Auto) 0.04 H (0.00-0.02) K/uL Sodium 126 L (136-145) mmol/L Potassium 4.6 (3.5-5.1) mmol/L Chloride 93 L (98-107) mmol/L Carbon Dioxide 21 (21-32) mmol/L Anion Gap 12.0 H (3-11) BUN 6 L (7-18) mg/dl Creatinine 0.77 (0.6-1.2) mg/dl Est Cr Clr Drug Dosing Not Reportable Est GFR ( Amer) 82.2 ml/min Est GFR (Non-Af Amer) 70.9 ml/min BUN/Creatinine Ratio 7.4 L (10-20) Glucose 186 H (70-99) mg/dl POC Glucose (70-99) mg/dl Calcium 9.2 (8.5-10.1) mg/dl Total Bilirubin 0.5 (0.2-1) mg/dl AST 46 H (15-37) U/L ALT 53 (12-78) Alkaline Phosphatase 87 (45-117) U/L Total Protein 6.2 L (6.4-8.2) gm/dl Albumin 3.0 L (3.4-5.0) gm/dl Globulin 3.2 (2.5-4.0) gm/dl Albumin/Globulin Ratio 0.9 (0.9-2) TSH 0.009 L (0.300-4.500) uIu/ml Free T4 2.28 H (0.8-1.6) ng/dl Salicylates < 1.7 L (2.8-20) mg/dl Acetaminophen 11 (10-30) ug/ml Ethyl Alcohol mg/dL (0-3) mg/dl 08/17/21 08/17/21 Range/Units 11:08 11:46 WBC (4.8-10.8) K/uL RBC (4.2-5.4) M/uL Hgb (12.0-16.0) g/dL Hct (37-47) % MCV (80-100) fL MCH (25-34) pg MCHC (32-36) g/dL RDW Std Deviation (36.4-46.3) fL RDW Coeff of Doris (11.5-14.5) % Plt Count (130-400) K/uL MPV (7.4-10.4) fL Immature Gran % (Auto) % Neut % (Auto) % Lymph % (Auto) % [place] % (Auto) % Eos % (Auto) % Baso % (Auto) % Neut # (Auto) (1.4-6.5) K/uL Lymph # (Auto) (1.2-3.4) K/uL [place] # (Auto) (0.11-0.59) K/uL Eos # (Auto) (0-0.5) K/uL Baso # (Auto) (0-0.2) K/uL Immature Gran # (Auto) (0.00-0.02) K/uL Sodium (136-145) mmol/L Potassium (3.5-5.1) mmol/L Chloride (98-107) mmol/L Carbon Dioxide (21-32) mmol/L Anion Gap (3-11) BUN (7-18) mg/dl Creatinine (0.6-1.2) mg/dl Est Cr Clr Drug Dosing Est GFR ( Amer) ml/min Est GFR (Non-Af Amer) ml/min BUN/Creatinine Ratio (10-20) Glucose (70-99) mg/dl POC Glucose 129 H (70-99) mg/dl Calcium (8.5-10.1) mg/dl Total Bilirubin (0.2-1) mg/dl AST (15-37) U/L ALT (12-78) Alkaline Phosphatase (45-117) U/L Total Protein (6.4-8.2) gm/dl Albumin (3.4-5.0) gm/dl Globulin (2.5-4.0) gm/dl Albumin/Globulin Ratio (0.9-2) TSH (0.300-4.500) uIu/ml Free T4 (0.8-1.6) ng/dl Salicylates (2.8-20) mg/dl Acetaminophen (10-30) ug/ml Ethyl Alcohol mg/dL < 3.0 (0-3) mg/dl Imaging Data Radiologist's Impression: Head CT 08/17/21 10:[address] DOSE: 614.27 mGy.cm HISTORY: Altered mental status. Confusion. TECHNIQUE: Multiaxial CT images of the head were performed without the use of intravenous contrast. Automated exposure control was utilized for this study. A dose lowering technique was utilized adhering to the principles of ALARA. Comparison: Chest 03/31/2019. Findings: The paranasal sinuses and mastoid air cells are clear. The calvarium and skull base are intact. There is no mass, hematoma, midline shift, acute infarct. White matter hypodensity is nonspecific but suggestive of microvascular ischemic change. The ventricles and sulci demonstrate mild age-related involutional changes. Impression: No significant change compared to the prior study. No acute intracranial abnormality. ACT 112: Negative or not required by law. Electronically signed by: Paulo Funes M.D. 08/17/2021 12:08 PM Chest X-Ray 08/17/21 12:58 XR chest 1V portable CLINICAL HISTORY: AMS eval for Pna. Difficulty breathing COMPARISON STUDY: 03/31/2019 TECHNIQUE: 1 view of the chest FINDINGS: Single frontal view of the chest demonstrates the cardiomediastinal silhouette to be within normal limits. There is a decreased inspiratory effort with elevation of the hemidiaphragms and crowding of the bronchovascular markings at the lung bases and centrally. The lungs are clear of alveolar opacities. There is no evidence for pleural effusion. There is no evidence for vascular congestion. There is no acute osseous pathology. Prominent degenerative changes are seen involving both shoulder joints. IMPRESSION: There is a decreased inspiratory effort with otherwise no acute chest disease. ACT 112: Negative or not required by law. Electronically signed by: Eleazar Alexander M.D. 08/17/2021 1:32 PM ECG Data Attestation: I personally reviewed and interpreted this ECG as follows: Indication: + tachycardia Rate (beats per minute): 113 Rhythm: + sinus tachycardia ECG Intervals/blocks: + Right Bundle branch block ECG [place]: + Normal ECG ST segments: no ST elevation ECG Findings: no PVCs Comparison ECG Date: from (March 31, 2019) Change: the following changes noted (Tachycardia is new today. Right bundle branch block was previously present.) MDM Narrative I did evaluate the patient as noted above. The patient is presenting with acute altered mental status and so history is difficult to obtain from her. It is unclear whether this is some type of delirium due to medical illness or psychosis from psychiatric illness or a combination of both. History is very limited although EMS did state that she had multiple newspaper articles posted on her sosa with scribbling and writing over them. She also has a history of bipolar disease and anxiety which she denies here. She perseverates here about getting out of bed or putting the bed rail down or having her pillow and is unwilling or unable to provide much history or answer questions. IV access was established. I did place an order for continuous cardiac monitoring. The monitor showed sinus tachycardia at a rate of 109 bpm. did order and personally review the patient's 12-lead EKG as described above. She has sinus tachycardia. She has an old right bundle branch block. I did order and personally reviewed the images of the patient's chest x-ray as described above. She does not have evidence of pneumonia. I did order a urine analysis. She does not have a UTI. Urine tox screen is negative. I did order and review the patient's blood work as noted in the electronic medical record. CBC dem onstrates an elevated white count at 12.59. She is not anemic or thrombocytopenic. Electrolytes demonstrate a sodium of 126 with a chloride of 93. Glucose is 129. LFTs are unremarkable other than a slight elevation of her AST at 46 and an albumin of 3. Her TSH is very low and her free T4 is 2.28. She is on thyroid medications. It is unclear whether or not she may have taken more of her thyroid medications than she was prescribed. I do not think she has thyroid storm at this time. She is not hyperpyrexic. Her tachycardia goes up to about 120. She marcela, however, be closely monitored. I did order a CT of the head. I did review the images myself as well as the radiology report as de scribed above. There is no evidence of acute intracranial abnormality. I did reassess the patient multiple times. Due to agitation, lack of cooperation and trying to get out of bed she was given several doses of Ativan IV. This seemed to calm her down and decrease her tachycardia. She will be hospitalized for further care and evaluation. I did discuss case with the hospitalist and case consultant. Impression & Plan Acute alteration in mental status, Acute hyponatremia, Thyrotoxicosis, Tachycardia Discharge Plan Visit Data Chief Complaint: Anxiety Stated Complaint: ANXIETY ED Provider: Bishop Navarrete Discharge Problem: Acute alteration in mental status, Acute hyponatremia, Thyrotoxicosis, Tachycardia Patient Disposition: Being Evaluated by Hospitalist
[2021-08-17 11:21] LABS: Basophils # (auto) 0.01 K/uL (0-0.2); Basophils % (auto) 0.1 %; Hematocrit (blood only) 37.1 % (37-47); Hemoglobin 12.7 g/dL (12.0-16.0); Immature Granulocytes # (auto) 0.04 K/uL (0.00-0.02); Immature Granulocytes % (auto) 0.3 %; Lymphocytes # (auto) 1.25 K/uL (1.2-3.4); Lymphocytes % (auto) 9.9 %; Mean Corpuscular Hemoglobin 30.3 pg (25-34); Mean Corpuscular Hgb Conc 34.2 g/dL (32-36); Mean Corpuscular Volume 88.5 fL (80-100); Mean Platelet Volume 10.7 fL (7.4-10.4); Monocytes # (auto) 1.61 K/uL (0.11-0.59); Monocytes % (auto) 12.8 %; Neutrophils # (auto) 9.68 K/uL (1.4-6.5); Neutrophils % (auto) 76.9 %; Platelet Count 307 K/uL (130-400); RDW Coefficient of Variation 15.1 % (11.5-14.5); RDW Standard Deviation 48.7 fL (36.4-46.3); Red Blood Count 4.19 M/uL (4.2-5.4); White Blood Count 12.59 K/uL (4.8-10.8)
[2021-08-17 11:43] LABS: Acetaminophen 11 ug/ml (10-30); Alanine Aminotransferase 53 (12-78); Aspartate Aminotransferase 46 U/L (15-37); BUN Creatinine Ratio 7.4 (10-20); Blood Urea Nitrogen 6 mg/dl (7-18); Calcium 9.2 mg/dl (8.5-10.1); Carbon Dioxide 21 mmol/L (21-32); Chloride 93 mmol/L (98-107); Est GFR (African American) 82.2 ml/min; Est GFR (Non-African American) 70.9 ml/min; Glucose 186 mg/dl (70-99); Potassium 4.6 mmol/L (3.5-5.1); Salicylate < 1.7 mg/dl (2.8-20); Sodium 126 mmol/L (136-145)
[2021-08-17 11:52] LABS: Appearance Urine Clear (Clear); Bilirubin Urine Negative (Negative); Blood Urine Negative (Negative); Color Urine Yellow; Glucose Urine UA Negative (Negative); Ketones Urine Negative (Negative); Leukocyte Esterase Urine Negative (Negative); Nitrite Urine Negative (Negative); Protein Urine Negative (Negative); Specific Gravity Urine 1.008 (1.000-1.030); Urobilinogen Urine Negative (Negative)
[2021-08-17 11:53] LABS: Albumin Globulin Ratio 0.9 (0.9-2); Alkaline Phosphatase 87 U/L (45-117); Bilirubin,Total 0.5 mg/dl (0.2-1); Globulin 3.2 gm/dl (2.5-4.0); Thyroid Stimulating Hormone 0.009 uIu/ml (0.300-4.500); Total Protein 6.2 gm/dl (6.4-8.2)
[2021-08-17 12:05] LABS: T4 Free Thyroxine 2.28 ng/dl (0.8-1.6)
[2021-08-17 12:10] LABS: Amphetamines+Metham, Urine Neg (Neg); Barbiturates, Urine Neg (Neg); Benzodiazepine, Urine Neg (Neg); Cocaine, Urine Neg (Neg); MDMA (Ecstacy), Urine Neg (Neg); Methadone, Urine Neg (Neg); Opiate, Urine Neg (Neg); Phencyclidine, Urine Neg (Neg)
--- NOTE | 2021-08-17 12:10 | CT Scan Report ---
HEAD CT NONCONTRAST CT DOSE: 614.27 mGy.cm HISTORY: Altered mental status. Confusion. TECHNIQUE: Multiaxial CT images of the head were performed without the use of intravenous contrast. A utomated exposure control was utilized for this study. A dose lowering technique was utilized adheri ng to the principles of ALARA. Comparison: Chest 03/31/2019. Findings: The paranasal sinuses and mastoid air cells are clear. The calvarium and skull base are int act. There is no mass, hematoma, midline shift, acute infarct. White matter hypodensity is nonspecifi c but suggestive of microvascular ischemic change. The ventricles and sulci demonstrate mild age-rela delio involutional changes. Impression: No significant change compared to the prior study. No acute intracranial abnormality. ACT 112: Negative or not required by law. Electronically signed by: Paulo Funes M.D. 08/17/2021 12:08 PM
--- NOTE | 2021-08-17 13:33 | XRay Report ---
XR chest 1V portable CLINICAL HISTORY: AMS eval for Pna. Difficulty breathing COMPARISON STUDY: 03/31/2019 TECHNIQUE: 1 view of the chest FINDINGS: Single frontal view of the chest demonstrates the cardiomediastinal silhouette to be within normal li mits. There is a decreased inspiratory effort with elevation of the hemidiaphragms and crowding of th e bronchovascular markings at the lung bases and centrally. The lungs are clear of alveolar opacities . There is no evidence for pleural effusion. There is no evidence for vascular congestion. There is n o acute osseous pathology. Prominent degenerative changes are seen involving both shoulder joints. IMPRESSION: There is a decreased inspiratory effort with otherwise no acute chest disease. ACT 112: Negative or not required by law. Electronically signed by: Eleazar Alexander M.D. 08/17/2021 1:32 PM
--- NOTE | 2021-08-17 14:19 | History & Physical Report ---
Date of Service August 17, 2021 Assessment & Plan (1) Confusion: Plan: Iatrogenic thyrotoxicosis with increased anxiety/agitation/altered mentation Leukocytosis to 12.59 Hyponatremic to 126 CThead: No mass, hematoma, midline shift, acute infarct. Nonspecific findings consistent with microvascular ischemic disease. Age-related involutional changes. No significant change from prior study. - Previous caretakers stopped seeing her due to unvaccinated status TSH very low at 0.009, last check on file 2019 was TSH 3 and uptitrated to 125mcg at that time Patient on Synthroid repletion, free T4 elevated at 2.28 UA negative ER U tox negative Covid negative CXR: Decreased inspiratory effort, otherwise no acute disease Prior EKG last 2018, sinus with PVCs and PACs. QT 455. Repeat EKG pending, tachycardic to the 130s, regular may start propranolol for thyroid toxicosis symptoms once BP permitting - hold synthroid (2) Hyponatremia: Plan: Patient with poor self-care, and recent caregivers not been able to be in house due to vaccination status Clinically volume down, suspect chronic hyponatremic hypovolemia with mild ankle edema 2/2 hypoalbuminemia Urine sodium/serum osm pending unclear baseline cognition, no n/v/d/c. ?Muscle weakness, although ambulating to bathroom and back well between assessment with nursing staff - Unclear chronicity. NSS 250 given on admit for suspectd intravascular depletion. BMP Q4H. Goal raise 6meq/24hrs. No concurrent kypokalemia. Defer 3% NaCl. - (3) Hypertension: Plan: Normotensive at time of admission (4) Memory impairment: Plan: Patient reportedly with intact cognitive scoring, although some behavioral disturbance. Has been seen by both neurology and psych in the past, per report was evaluated for bipolar disorder but patient denies this (5) Iatrogenic thyrotoxicosis: Plan: See above (6) Tremor: Plan: Propranolol as above Plan: DVT prophylaxis: Refuses heparin, SCDs Diet: Regular Disposition: Medical telemetry CODE STATUS: Full code History of Present Illness Chief Complaint: Anxiety Primary Care Provider: TEENA Olson Cindy is a 85-year-old female the past medical history of bipolar, anxiety, memory impairment, hypothyroidism, hypertension who presented by ambulance after she felt like her body "stopped functioning "and had increased anxiety/agitation. Per EMS and emergency department report when patient was found had a wall filled with newspaper articles with disorganized writing, patient difficult to coax out of the bathroom and declined to answer further questions. Experience picking behavior blankets when evaluated by ER. Was seen in 08/2019 by neurology for tremor and was recommended for SSRI treatm ent versus beta-lizet/propranolol for secondary benefit. Concern at that appointment was expressed by the patient for seizures, but she did not show any epileptic movements and EEG was not done. Patient was noted to have short-term memory impairment with confusion and intermittent behavioral disturbance and agitation. History somewhat limited by cognitive status. She is oriented to name and year but not place and thought process is somewhat circumferential. She reports she has been living at home with 8 hours of caregiver help daily up until last week when her caregivers were no longer able to come in due to her unvaccinated status. She reports she was scheduled to get the Covid vaccine, but is not sure when, and would be okay to get the vaccine while she is in the hospital. She r eports that she felt her body felt weak at home, does not give additional history for this. In discussing her medications she reports her thyroid medicine was prescribed 2 years ago, has not been adjusted or checked since then. She reports she takes 1 pill of this daily and that it is the only medicine she takes. She reports that she "is allergic to all MD medicines, but if it is from other nature it is good for her body and she will take it ". She denies auditory/visual hallucinations. She denies chest pain, chest pressure at time of assessment, no palpitations at time of assessment, endorses that she has felt intermittently like she has had a racing heart but is not able to quantify how often this is occurred. Denies shortness of breath, dyspnea. Per chart review has a history of bipolar/anxiety, patient denies this does not offer further history. Ports she has not been on medications for this. Reports that she would want all measures taken to bring her back would want CPR/intubation both for declining status or arrest. Remaining history somewhat difficult due to tangential thought process. Requires frequent redirection, and perseverates on trying to set up/get out of bed. Denies SI/HI. Medical History: Reviewed, limited by cognitive status Medications: Reviewed, limited by cognitive status Surgical History: Reviewed, limited by cognitive status Allergies: Reviewed, limited by cognitive status Social History: Denies tobacco, alcohol, recreational substance use. Lives at home with caregivers, no caregivers in last week. Code Status: Full Code, discussed w/ pt Allergies Allergy/AdvReac Type Severity Reaction Status Date / Time Penicillins Allergy Severe HIVES Verified 08/17/21 12:48 Anesthetics, Halogenated AdvReac Severe "LOWERS Uncoded 08/17/21 12:48 B/P" Home Medications Medication Instructions Recorded Confirmed Type Supplements See Rx Instructions .ROUTE .COMPLEX 03/31/19 08/17/21 History levothyroxine 125 mcg tablet 125 mcg PO QAM 03/31/19 08/17/21 History Past Med/Surg History Medical History (Updated 08/17/21 @ 14:39 by Julian Olguin MD) Anxiety related tremor CVA (cerebrovascular accident) Hypothyroid Memory impairment Neuropathy Tremor Surgical History History of oophorectomy History of tonsillectomy and adenoidectomy Status post appendectomy Family History Other Family history non-contributory Social History Smoking Status: Never smoker Hx Alcohol Use: No Preferred Language: Amharic Communication Ability: Effective Hearing Ability: Normal Beliefs That Will Affect Care: None marital status: Current Living Situation: Alone current occupational status: retired Feels Safe at Home: Yes Review of Systems Review of Systems: 10 point review of systems negative except as noted in HPI, although somewhat limited by patient tangential thought process and cognitive status Physical Exam Physical Exam: General: Not oriented to day, place. Oriented to name, city. No acute distress, disheveled HEENT: Atraumatic, normocephalic. Visual acuity and hearing grossly intact Pulm: Diminished CTAB A&P. -wheezes, -rales, -rhonchi. Symmetrical chest rise. No respiratory distress. Cardiac: Regular, tachycardic, -mrg. Radial pulses intact and symmetrical. Abdominal: Nontender, nondistended, soft. BS present. Extremities: Warm, dry, atraumatic, mild edema. Moves all extremities equally. Results & Data Results & Data ([facility]) Vital Signs (Past 12 Hours) Vital Signs Temp Pulse Pulse Resp BP BP Pulse Ox 08/17/21 13:35 132 H 119/66 92 08/17/21 13:30 113 H 27 H 96 08/17/21 13:20 113 H 17 97 08/17/21 13:10 123 H 21 98 08/17/21 13:00 109 H 21 130/107 H 97 08/17/21 12:52 95 H 16 118/80 97 08/17/21 12:50 112 H 25 H 97 08/17/21 12:49 114 H 18 96 08/17/21 12:30 102 H 17 95 08/17/21 12:27 105 H 18 118/80 99 08/17/21 12:20 96 H 25 H 97 08/17/21 12:10 102 H 16 97 08/17/21 12:00 93 H 16 08/17/21 11:59 98 H 17 08/17/21 11:40 99 H 16 97 08/17/21 11:30 103 H 25 H 98 08/17/21 11:20 104 H 29 H 96 08/17/21 11:19 105 H 17 98 08/17/21 10:32 36.7 C 122 H 22 95 08/17/21 10:27 103 H 20 130/60 96 PG Care Time/CCT Total # of Minutes Spent Total Time Spent with Patient: Total time spent is greater than 50% in coordination of care (as documented) at patient's floor/unit and/or counseling patient: Coding Level of Care Code 00789 Initial Inpt Care Lvl 3 Diagnoses Confusion R41.0 Hypertension I10 Memory impairment R41.3 Iatrogenic thyrotoxicosis E05.80 Tremor R25.1 Hyponatremia E87.1
[2021-08-17] MEDS ORDERED: SODIUM CHLORIDE 0.9% 1000ML 250 ML IV ONE (15:10)
--- NOTE | 2021-08-17 16:46 | Electrocardiogram Report ---
Test Reason : Blood Pressure : / mmHG Vent. Rate : 113 BPM Atrial Rate : 113 BPM P-R Int : 130 ms QRS Dur : 110 ms QT Int : 354 ms P-R-T Axes : 078 090 068 degrees QTc Int : 485 ms Poor data quality, interpretation may be adversely affected Sinus tachycardia Right bundle branch block Abnormal ECG When compared with ECG of 31-MAR-2019 16:07, Premature ventricular complexes are no longer Present Premature supraventricular complexes are no longer Present Vent. rate has increased BY 48 BPM QRS duration has decreased ST now depressed in Anterior leads Confirmed by Marshal Palm ([id number]) on 08/17/2021 4:46:16 PM Referred By: REFERRED SELF Confirmed By:Robert Palm
[2021-08-17] MEDS: SODIUM CHLORIDE 0.9% 1000ML 500 ML IV SCH (17:22)
[2021-08-17] MEDS ORDERED: HALOPERIDOL LACTATE 5 MG/ML 1 ML VIAL IM STA (17:54)
[2021-08-17] MEDS ORDERED: MAGNESIUM OXIDE 400 MG TAB PO ONE (17:55)
[2021-08-17 19:30] LABS: BUN Creatinine Ratio 10.8 (10-20); Calcium 8.5 mg/dl (8.5-10.1); Creatinine Clr Calc Pharmacy 93.1 ml/min; Est GFR (African American) 105.1 ml/min; Est GFR (Non-African American) 90.7 ml/min
[2021-08-17] MEDS: PROPRANOLOL HCL 10 MG TAB PO SCH (20:51)
[2021-08-17] MEDS: OLANZapine 5 MG TABLET PO PRN (20:52)
[2021-08-17] MEDS: LORazepam 0.5 MG/1 ML VIAL IV PRN (21:58)
[2021-08-17 22:42] LABS: Calcium 8.8 mg/dl (8.5-10.1); Creatinine Clr Calc Pharmacy 101.8 ml/min; Est GFR (African American) 108.3 ml/min; Est GFR (Non-African American) 93.4 ml/min
[2021-08-18] MEDS: SODIUM CHLORIDE 0.9% 1000ML 500 ML IV SCH ×3 (00:47→14:15)
[2021-08-18 03:03] LABS: BUN Creatinine Ratio 11.2 (10-20); Calcium 8.8 mg/dl (8.5-10.1); Creatinine Clr Calc Pharmacy 109.4 ml/min; Est GFR (African American) 110.9 ml/min; Est GFR (Non-African American) 95.6 ml/min; Potassium 3.7 mmol/L (3.5-5.1)
[2021-08-18 06:19] LABS: Basophils # (auto) 0.01 K/uL (0-0.2); Basophils % (auto) 0.1 %; Hematocrit (blood only) 36.2 % (37-47); Hemoglobin 12.3 g/dL (12.0-16.0); Immature Granulocytes # (auto) 0.02 K/uL (0.00-0.02); Immature Granulocytes % (auto) 0.2 %; Lymphocytes # (auto) 0.59 K/uL (1.2-3.4); Lymphocytes % (auto) 5.7 %; Mean Corpuscular Hemoglobin 30.5 pg (25-34); Mean Corpuscular Volume 89.8 fL (80-100); Mean Platelet Volume 10.8 fL (7.4-10.4); Monocytes # (auto) 0.96 K/uL (0.11-0.59); Monocytes % (auto) 9.2 %; Neutrophils # (auto) 8.83 K/uL (1.4-6.5); Neutrophils % (auto) 84.8 %; Platelet Count 280 K/uL (130-400); RDW Coefficient of Variation 15.3 % (11.5-14.5); Red Blood Count 4.03 M/uL (4.2-5.4); White Blood Count 10.41 K/uL (4.8-10.8)
[2021-08-18 06:57] LABS: BUN Creatinine Ratio 9.4 (10-20); Calcium 8.7 mg/dl (8.5-10.1); Creatinine Clr Calc Pharmacy 106.7 ml/min; Est GFR (Non-African American) 94.9 ml/min; Potassium 3.4 mmol/L (3.5-5.1)
[2021-08-18] MEDS ORDERED: PROPRANOLOL HCL 10 MG TAB PO SCH (09:00)
[2021-08-18] MEDS ORDERED: POTASSIUM CHLORIDE CRTAB 20 MEQ TABCR PO STA (10:02)
[2021-08-18] MEDS: PROPRANOLOL HCL 10 MG TAB PO SCH ×2 (11:38→21:18)
[2021-08-18] MEDS: LORazepam 0.5 MG/1 ML VIAL IV PRN (13:54)
--- NOTE | 2021-08-18 17:34 | Hospitalist Progress Note ---
Date of Service August 18, 2021 Assessment & Plan (1) Confusion: Plan: Probably multifactorialiatrogenic hyperthyroidism, probable acute calorie, mild protein malnutrition and dehydration, hyponatremialikely due to poor p.o. intake. Hard to rule out baseline dementia. Also given the report of the situation at her home, I do worry about some form of psychosis. Stabilizing metabolic factors, then we will continue to follow mental status. May need psychiatric input as well (2) Hyponatremia: Plan: Patient with poor self-care, and recent caregivers not been able to be in house due to vaccination status Improved with fluids - (3) Hypertension: Plan: Blood pressures have been reasonable (4) Memory impairment: Plan: Patient reportedly with intact cognitive scoring, although some behavioral disturbance. Has been seen by both neurology and psych in the past, per report was evaluated for bipolar disorder but patient denies thissee above stabilize metabolic factors, continue with serial mental status assessments, may need psychiatric evaluation (5) Iatrogenic thyrotoxicosis: Plan: Holding Synthroid, propranolol for tachycardia/tremor seems to be helping nicely, periodic serial TSH and eventually will resume Synthroid when appropriate (6) Tremor: Plan: Propranolol as above Plan: DVT prophylaxis: Refuses heparin, SCDs Diet: Regular Disposition: Medical telemetry CODE STATUS: Full code Dispo uncertaincertainly she does not seem safe in her home environment in her current state, ask PT/OT eval and treat, but also largely her disposition will be driven by the final etiology and progress of her confusion/altered mentation Admission and Anticipated Discharge Date Admission Date: August 17, 2021 Subjective Seen twice today. Sleeping the first time. Later whenever I revisit she is awakebut was just given Ativan IV by nursing due to what sounded to be a fairly severe agitation. No meaningful HPI review of systems obtainablefor what is worth the patient denies any pain or complaints, but also believes that we are in her apartment. Review of Systems Review of Systems: Unobtainable due to cognitive status Physical Exam Physical Exam: Awake but disoriented. HEENT normocephalic atraumatic mucous membranes moist. Cardio regular no rubs murmurs or gallops. Lungs clear to auscultation no accessory muscles. Skin shows no rashes no pallor or icterus. Neuro without focal deficits. Results & Data Results & Data ([facility]) Vital Signs (Past 12 Hours) Vital Signs Temp Pulse Pulse Resp BP Pulse Ox 08/18/21 13:06 99.3 F 95 H 20 107/60 98 08/18/21 10:05 81 16 114/71 99 08/18/21 09:00 81 15 132/51 L 100 PG Care Time/CCT Total # of Minutes Spent Total Time Spent with Patient: Total time spent is greater than 50% in coordination of care (as documented) at patient's floor/unit and/or counseling patient: Coding Level of Care Code 06773 Subseq Hosp Care Lvl 2 Diagnoses Confusion R41.0 Hyponatremia E87.1 Hypertension I10 Memory impairment R41.3 Iatrogenic thyrotoxicosis E05.80 Tremor R25.1
[2021-08-19] MEDS: LORazepam 0.5 MG/1 ML VIAL IV PRN (01:27)
[2021-08-19] MEDS ORDERED: POTASSIUM CHLORIDE CRTAB 20 MEQ TABCR PO STA (06:00)
[2021-08-19] MEDS ORDERED: METOPROLOL TARTRATE 1 MG/ML VIAL IV PRN (06:04)
[2021-08-19] MEDS: POTASSIUM CHLORIDE / WTR 10 MEQ/100 ML PLCT IV SCH ×2 (06:27→07:25)
[2021-08-19] MEDS ORDERED: MAGNESIUM SULFATE / D5W 1 GM/100 ML BAG IV ONE (06:30)
[2021-08-19 07:19] LABS: BUN Creatinine Ratio 25.5 (10-20); Calcium 8.9 mg/dl (8.5-10.1); Creatinine Clr Calc Pharmacy 88.8 ml/min; Est GFR (African American) 104.4 ml/min; Est GFR (Non-African American) 90.1 ml/min; Potassium 4.3 mmol/L (3.5-5.1)
[2021-08-19 07:30] LABS: Troponin I 2.3 ng/ml (0-0.045)
[2021-08-19] MEDS ORDERED: ASPIRIN 325 MG ECTAB PO ONE (08:19)
[2021-08-19] MEDS: PROPRANOLOL HCL 10 MG TAB PO SCH ×2 (08:36→20:18)
--- NOTE | 2021-08-19 12:51 | XCELERA ---
[id number]
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
--- NOTE | 2021-08-19 17:25 | Hospitalist Progress Note ---
Date of Service August 19, 2021 Assessment & Plan (1) Confusion: Plan: Probably multifactorialiatrogenic hyperthyroidism, probable acute calorie, mild protein malnutrition and dehydration, hyponatremialikely due to poor p.o. intake. Hard to rule out baseline dementia. Also given the report of the situation at her home, I do worry about some form of psychosis, although the psychiatry eval reassuring in that regard. Continue to follow mental status. Stabilized metabolic factors, continue to follow mental status. (2) Hyponatremia: Plan: Patient with poor self-care, and recent caregivers not been able to be in house due to vaccination status Improved with fluids. No need for further fluids at this time (3) Hypertension: Plan: Blood pressures have been reasonable, continue to follow (4) Memory impairment: Plan: See aboveongoing assessment of mental status. At this point in time, I do not believe she has capacity to make safe decisions. We will definitely need to follow periodically (5) Iatrogenic thyrotoxicosis: Plan: Holding Synthroid, propranolol for tachycardia/tremor seems to be helping nicely, periodic serial TSH and eventually will resume Synthroid when brooke ropriate (probably check next TSH in about a week given the long half-life of Synthroid) (6) Tremor: Plan: Propranolol as abovewe will start to reduce Plan: DVT prophylaxis: Refuses heparin, SCDs Diet: Regular Disposition: Medical telemetry CODE STATUS: Full code Dispo uncertaincertainly she does not seem safe in her home environment in her current state, PT/OT eval and treat, at this point time would need somewhere with 24-hour supervision. Her daughter expresses personal care as a goalthis seems to be a pretty good overall fit. Right now need to continue to follow mental status and work on safe disposition options. Admission and Anticipated Discharge Date Admission Date: August 17, 2021 Subjective Notes no complaints. No chest pain no shortness of breath. Generally feels okay. Would like to go home. Still seems very easily confused. [facility] has been doing for quite some time, feels ideally personal care would be a good long-term destination for her mother. Review of Systems Review of Systems: All systems reviewed & are unremarkable except as noted in HPI & below and Unobtainable due to cognitive status Review of systems essentially negativealthough of questionable veracity given her mental status Physical Exam Physical Exam: Awake and alert, easily confused but no distress. HEENT normocephalic atraumatic mucous membranes are moist. Cardio regular without rubs murmurs or gallops breathing unlabored no accessory muscle use good effortno rales rhonchi or wheezes good effort Skin shows no rashes no pallor or icterus. Fairly thin and frail appearing, fortunately no tremor at this time. No focal neuro deficits Results & Data Results & Data ([facility]) Vital Signs (Past 12 Hours) Vital Signs Temp Pulse Pulse Resp BP Pulse Ox 08/19/21 15:10 96.6 F L 90 20 99/64 L 97 08/19/21 11:17 97.0 F L 82 20 112/63 97 08/19/21 07:18 86 08/19/21 07:03 97.3 F L 85 20 116/70 96 PG Care Time/CCT Total # of Minutes Spent Total Time Spent with Patient: Total time spent is greater than 50% in coordination of care (as documented) at patient's floor/unit and/or counseling patient: Coding Level of Care Code 91281 Subseq Hosp Care Lvl 3 Diagnoses Confusion R41.0 Hyponatremia E87.1 Hypertension I10 Memory impairment R41.3 Iatrogenic thyrotoxicosis E05.80 Tremor R25.1
[2021-08-20] MEDS: LORazepam 0.5 MG/1 ML VIAL IV PRN (00:19)
--- NOTE | 2021-08-20 02:41 | Communication Note ---
Date of Service: August 20, 2021 Patient with agitation in regards to her telemetry leads. Reviewed labs, electrolytes balanced at this time, downtrending trop. Will DC Tele leads for now, may resume when patient less agitated.
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
[2021-08-20] MEDS: ASPIRIN 81 MG ECTAB PO SCH (09:08)
[2021-08-20] MEDS: PROPRANOLOL HCL 10 MG TAB PO SCH ×2 (09:08→21:23)
--- NOTE | 2021-08-20 18:31 | Hospitalist Progress Note ---
Date of Service August 20, 2021 Assessment & Plan (1) Confusion: Plan: Probably multifactorialiatrogenic hyperthyroidism, probable acute calorie, mild protein malnutrition and dehydration, hyponatremialikely due to poor p.o. intake. Hard to rule out baseline dementia. Also given the report of the situation at her home, I do worry about some form of psychosis, although the psychiatry eval reassuring in that regard. Continue to follow mental status. See below Stabilized metabolic factors, continue to follow mental status. As I continue to follow her, I do wonder about not just acute delirium, but possibly baseline dementia (2) Hyponatremia: Plan: Patient with poor self-care, and recent caregivers not been able to be in house due to vaccination status Improved with fluids. Basic metabolic panel in the morning (3) Hypertension: Plan: Blood pressures have been acceptable, continue to follow (4) Memory impairment: Plan: See aboveongoing assessment of mental status. At this point in time, I do not believe she has capacity to make safe decisions. Hard to discern delirium versus baseline dementia but getting more concerned about baseline dementia (5) Iatrogenic thyrotoxicosis: Plan: Holding Synthroid, propranolol for tachycardia/tremor seems to be helping nicely, periodic serial TSH and eventually will resume Synthroid when appropriate (probably check next TSH in about a week given the long half-life of Synthroid) (6) Tremor: Plan: Propranolol as abovewe will start to reduce Plan: DVT prophylaxis: Refuses heparin, SCDs Diet: Regular Disposition: Medical telemetry CODE STATUS: Full code Dispo uncertaincertainly she does not seem safe in her home environment in her current state, PT/OT eval and treat, at this point time would need somewhere with 24-hour supervision. Her daughter expresses personal care as a cooper pond to be a pretty good overall fit. Right now need to continue to follow mental status and work on safe disposition options. Admission and Anticipated Discharge Date Admission Date: August 17, 2021 Subjective No meaningful HPI review of systems obtainable at this time. She is angrily adamant about wanting me to move her walker closer to her so that when her caregivers, (she believes she is in her apartment) they can help her use it. Review of Systems Review of Systems: Unobtainable due to cognitive status Physical Exam Physical Exam: Disoriented and upset but no distress. HEENT normocephalic atraumatic mucous membranes moist. Breathing unlabored no accessory muscle use good effort. Skin shows no rashes no pallor or icterus. Neuro without focal deficits. Confused and agitated Results & Data Results & Data ([facility]) Vital Signs (Past 12 Hours) Vital Signs Temp Pulse Resp BP Pulse Ox 08/20/21 15:53 97.5 F L 83 18 135/72 97 08/20/21 11:41 97.5 F L 69 24 107/62 99 08/20/21 08:00 97.9 F 87 18 119/51 L 96 PG Care Time/CCT Total # of Minutes Spent Total Time Spent with Patient: Total time spent is greater than 50% in coordination of care (as documented) at patient's floor/unit and/or counseling patient: Coding Level of Care Code 70319 Subseq Hosp Care Lvl 2 Diagnoses Confusion R41.0 Hyponatremia E87.1 Hypertension I10 Memory impairment R41.3 Iatrogenic thyrotoxicosis E05.80 Tremor R25.1
[2021-08-20] MEDS: LACTATED RINGER'S 1,000 ML IV SCH (19:42)
--- NOTE | 2021-08-20 19:55 | Electrocardiogram Report ---
Test Reason : Blood Pressure : / mmHG Vent. Rate : 090 BPM Atrial Rate : 074 BPM P-R Int : 000 ms QRS Dur : 126 ms QT Int : 450 ms P-R-T Axes : 069 086 067 degrees QTc Int : 550 ms Sinus rhythm Premature atrial complexes Right bundle branch block Abnormal ECG When compared with ECG of 17-AUG-2021 14:35, HR has decreased Nonspecific T wave abnormality has replaced inverted T waves in Anterior leads Confirmed by Robel Dominguez ([id number]) on 08/20/2021 7:54:33 PM Referred By: REFERRED SELF Confirmed By:Robel Dominguez
--- NOTE | 2021-08-20 20:12 | Electrocardiogram Report ---
Test Reason : Blood Pressure : / mmHG Vent. Rate : 077 BPM Atrial Rate : 077 BPM P-R Int : 118 ms QRS Dur : 124 ms QT Int : 442 ms P-R-T Axes : 066 080 049 degrees QTc Int : 500 ms Sinus rhythm with Premature atrial complexes Right bundle branch block Abnormal ECG When compared with ECG of 19-AUG-2021 05:53, (unconfirmed) No significant change Confirmed by Robel Dominguez ([id number]) on 08/20/2021 8:12:17 PM Referred By: REFERRED SELF Confirmed By:Robel Dominguez
[2021-08-21] MEDS: LACTATED RINGER'S 1,000 ML IV SCH ×2 (09:06→21:21)
[2021-08-21 10:20] LABS: Basophils # (auto) 0.01 K/uL (0-0.2); Basophils % (auto) 0.1 %; Eosinophils # (auto) 0.06 K/uL (0-0.5); Eosinophils % (auto) 0.7 %; Hematocrit (blood only) 32.6 % (37-47); Hemoglobin 10.8 g/dL (12.0-16.0); Immature Granulocytes # (auto) 0.01 K/uL (0.00-0.02); Immature Granulocytes % (auto) 0.1 %; Lymphocytes # (auto) 1.06 K/uL (1.2-3.4); Lymphocytes % (auto) 11.8 %; Mean Corpuscular Hemoglobin 30.5 pg (25-34); Mean Corpuscular Hgb Conc 33.1 g/dL (32-36); Mean Corpuscular Volume 92.1 fL (80-100); Mean Platelet Volume 10.3 fL (7.4-10.4); Monocytes # (auto) 1.13 K/uL (0.11-0.59); Monocytes % (auto) 12.6 %; Neutrophils # (auto) 6.71 K/uL (1.4-6.5); Neutrophils % (auto) 74.7 %; Platelet Count 233 K/uL (130-400); RDW Coefficient of Variation 15.9 % (11.5-14.5); RDW Standard Deviation 53.6 fL (36.4-46.3); Red Blood Count 3.54 M/uL (4.2-5.4); White Blood Count 8.98 K/uL (4.8-10.8)
[2021-08-21 10:56] LABS: BUN Creatinine Ratio 28.5 (10-20); Calcium 8.3 mg/dl (8.5-10.1); Creatinine Clr Calc Pharmacy 95.1 ml/min; Est GFR (African American) 105.9 ml/min; Est GFR (Non-African American) 91.3 ml/min; Potassium 3.4 mmol/L (3.5-5.1); Thyroid Stimulating Hormone 0.006 uIu/ml (0.300-4.500)
[2021-08-21] MEDS: PROPRANOLOL HCL 10 MG TAB PO SCH ×4 (11:31→20:17)
[2021-08-21] MEDS: ASPIRIN 81 MG ECTAB PO SCH ×3 (11:31→12:39)
[2021-08-21] MEDS ORDERED: POTASSIUM CHLORIDE CRTAB 20 MEQ TABCR PO STA (11:36)
--- NOTE | 2021-08-21 18:48 | Hospitalist Progress Note ---
Date of Service August 21, 2021 Assessment & Plan (1) Confusion: Plan: Probably multifactorialiatrogenic hyperthyroidism, probable acute calorie, mild protein malnutrition and dehydration, hyponatremialikely due to poor p.o. intake. Hard to rule out baseline dementia. Continue to follow closely. Definitely seems to be improved, but hard to tell exactly where she is at. (2) Hyponatremia: Plan: Patient with poor self-care, and recently one of her regular caregivers was sick, and therefore she was alone for a lot longer than she normally is Improved with fluids. Follow periodic basic metabolic panel (3) Hypertension: Plan: Blood pressures have been acceptable, continue to follow (4) Memory impairment: Plan: See aboveongoing assessment of mental status. At this point in time, I do not believe she has capacity to make safe decisions. Hard to discern delirium versus baseline dementia but getting more concerned about baseline dementia. That said her mentation is better today than previous dayscontinue to follow (5) Iatrogenic thyrotoxicosis: Plan: Holding Synthroid, propranolol for tachycardia/tremor seems to be helping nicely, periodic serial TSH (still quite low today) and eventually will resume Synthroid when appropriate (probably check next TSH in about a week given the long half-life of Synthroid) (6) Tremor: Plan: Propranolol as above Plan: DVT prophylaxis: Refuses heparin, SCDs Diet: Regular Disposition: Medical telemetry CODE STATUS: Full code Dispo uncertaincertainly she does not seem safe in her home environment in her current state, PT/OT eval and treat, at this point time would need somewhere with 24-hour supervision. Her daughter expresses personal care as a goalthis seems to be a pretty good overall fit. Right now need to continue to follow mental status and work on safe disposition options. As it relates to Covid vaccine and the disposition options, if the patient continues to lack capacity, daughter seems to be willing to consent to have her mother vaccinated, but in our current discussions she would much prefer (understandably) her mother to also be willing. Admission and Anticipated Discharge Date Admission Date: August 17, 2021 Subjective Patient sleeping whenever I first saw her. On revisit she is laying in bed shaking and anxious. Notes that she is feeling very shaky with a sense of dread. In discussion that the shakiness, and possibly a lot of her symptoms relate to her hyperthyroidism that will take quite a while to slow down, she asks "should I have taken those pills earlier today?" In discussion of what the medications were there to do, she decides to take them. Called her daughter to chris notes that in talking to her mom she is a bit worse than normal, more confused. Discussed discharge planningstill goal of a facility per daughter's judgment, while patient herself still seems to be too confused to make her own decisions safely. In discussing Covid vaccination, daughter seemed to be willing, but wanted her mom to be willing as well. Discussed that in hospital we are only able to administer Fahad & Fahad (discussed risk of blood clotting but very rare given patient's age), and discussed other vaccines being more efficacious, but would not be able to ensure administration. Review of Systems Review of Systems: All systems reviewed & are unremarkable except as noted in HPI & below Constitutional: Review of systems otherwise negative except for as above Physical Exam Physical Exam: Awake and alert seems to be oriented x2-3, although she really keeps the conversation fairly superficial so is a little bit hard to tell. Does appear anxious, somewhat shaky. HEENT normocephalic atraumatic mucous membranes are moist. Breathing unlabored no accessory muscle use good effort. Skin without rashes, pallor, icterus. Neuro shows her to have a fairly high amplitude tremor symmetrically. Mental status tough to gaugeshe is conversational and appropriate, but keeps the conversation fairly superficial to her current symptoms and needs more than anything. Results & Data Results & Data ([facility]) Vital Signs (Past 12 Hours) Vital Signs Temp Pulse Resp BP Pulse Ox 08/21/21 16:00 98.2 F 88 18 133/75 95 08/21/21 11:57 97.7 F 89 18 153/52 H 96 08/21/21 08:00 97.7 F 91 H 18 172/73 H 95 PG Care Time/CCT Total # of Minutes Spent Total Time Spent with Patient: Total time spent is greater than 50% in coordination of care (as documented) at patient's floor/unit and/or counseling patient: Coding Level of Care Code 54317 Subseq Hosp Care Lvl 3 Diagnoses Confusion R41.0 Hyponatremia E87.1 Hypertension I10 Memory impairment R41.3 Iatrogenic thyrotoxicosis E05.80 Tremor R25.1
[2021-08-22] MEDS: ASPIRIN 81 MG ECTAB PO SCH (07:59)
[2021-08-22] MEDS: PROPRANOLOL HCL 10 MG TAB PO SCH ×2 (07:59→20:20)
--- NOTE | 2021-08-22 08:00 | Hospitalist Progress Note ---
Date of Service August 22, 2021 Assessment & Plan (1) Acute alteration in mental status: Plan: Presented 08/17 with acute confusion Suspect multifactorial 2/2 hyponatremia (126) due to poor intake at home, iatrogenic thyrotoxicosis (TSH 0.009, fT4 2.28) Baseline cognitive impairment in s/o underlying dementia & psychiatric disease CTH 08/17 unremarkable (notes chronic microvascular ischemia). UA & CXR w/o evidence of infection. Utox negative. Psych eval 08/19: suspect medical disease is main contributor as above. Recommend avoiding antipsychotics, uptitrate propranolol PRN restlessness/anxiousness if BP/HR allow - Continue to monitor for ongoing improvement - Seems unsafe to live alone - CM working on placement - Ativan & Olanzapine PRNs available but will plan to DC if continues to not require. Want to avoid use as much as possible to avoid precipitating delirium Present on Admission?: Yes (2) Acute hyponatremia: Plan: Na 126 on presentation 08/17 Suspect hypovolemic hyponatremia 2/2 poor PO intake at home in s/o baseline cognitive impairment & lack of caregiver support Improved to normal s/p IV fluids - RESOLVED - Monitor Na daily - today's labs ordered - Plan to DC mIVF when PO intake improves & monitor for Na stability off mIVF - Protection Consultant referral Present on Admission?: Yes (3) Iatrogenic thyrotoxicosis: Plan: On admission TSH 0.009, fT4 2.28 Prior home med: 125mcg levothyroxine - Follow fT4 tomorrow to ensure improving (TSH will take a while to normalize) - Holding home levothyroxine at present - suspect will need to hold on discharge & monitor TSH to determine if needs resumed in future - Propranolol 10mg BID - may need to uptitrate if BP remains consistently elevated Present on Admission?: Yes (4) Memory impairment: Plan: Neurology eval 08/2019 short term memory impairment & confusion. Anxiety behavior, possible vascular dementia. See AMS above Seems unsafe to return home alone (5) Hypothyroidism: Plan: Baseline hypothyroidism on 125mcg levothyroxine DIRECTOR WORK - See above re thyrotoxicosis Plan: Diet: Regular + mIVF LR @ 80 DVT ppx: attempt lovenox today - if refuses will retry IPCs Bowel regimen: senna daily Code: Full Dispo: suspect SNF, CM following, came from [address] [facility] Seems unsafe to return home w/o 24hr supervision PT/OT eval Unvaccinated to our knowledge which will limit disposition options. Although today endorses to me having received the vaccine shortly before this admission. Admission and Anticipated Discharge Date Admission Date: August 17, 2021 Berny Almonte is an 85F admitted 08/17/21 for confusion and increased anxiety found to have iatrogenic thyrotoxicosis and hyponatremia to 126. Her PMH is notable for bipolar depression, anxiety, memory impairment, hypothyroidism, hypertension, history of trauma. Today / - VS: 130-170s/60-70s in past 2 days, seems to be gradually rising. HR 80s-90s. - I/O net negative. no recent BM recorded (notes baseline 1-2BM/wk at home) - Labs: Hgb 10.8 1/2 from 12s, suspect dilutional. TSH 0.006 2. No AM labs - ordered RFP & CBC for today - Mental status: calm. AOX2 (knows self/age/month/year, aware in hospital but unsure what hospital), seems to be improving in comparison to prior documentation Last required Ativan PRN 08/20 at 00:20 Has not required PRN olanzapine - Endorses wanting to go home. Notes she was only eating/drinking pedialyte & yogurt at home as her stomach doesn't digest solids well Review of Systems Review of Systems: No CP RIVAS blurry vision SOB abdominal pain Feels hungry Physical Exam Physical Exam: General: Well appearing, lying in bed comfortably HEENT: poor dentition, several missing teeth CV: Normal rate, regular rhythm. No murmurs. Resp: Breathing comfortably on room air. Lungs clear to auscultation bilaterally. No wheezes, crackles, or rhonchi Abd: Soft, nontender, nondistended, BS active Ext: Warm, well perfused. No edema. Slight chronic venous stasis changes : Willing[place] in place Mental: oriented to self/age/month/year. knows in hospital but can't name. calm. answers questions logically & appropriately. naming intact. Eyes: Pupils equal & round Results & Data Results & Data ([facility]) Vital Signs (Past 12 Hours) Vital Signs Temp Pulse Pulse Resp BP Pulse Ox 08/22/21 07:00 97.7 F 88 18 174/67 H 96 08/22/21 06:00 82 136/68 08/21/21 22:57 98.1 F 89 22 178/69 H 96 PG Care Time/CCT Total # of Minutes Spent Total Time Spent with Patient: Total time spent is greater than 50% in coordination of care (as documented) at patient's floor/unit and/or counseling patient: Coding Level of Care Code 04912 Subseq Hosp Care Lvl 2 Diagnoses Acute alteration in mental status R41.82 Acute hyponatremia E87.1 Iatrogenic thyrotoxicosis E05.80 Memory impairment R41.3 Hypothyroidism E03.9
[2021-08-22] MEDS ORDERED: [UNRECOGNIZED DRUG - REMARK] ONE (10:25)
[2021-08-22 11:03] LABS: Hematocrit (blood only) 33.5 % (37-47); Hemoglobin 11.3 g/dL (12.0-16.0); Mean Corpuscular Hemoglobin 30.8 pg (25-34); Mean Corpuscular Hgb Conc 33.7 g/dL (32-36); Mean Corpuscular Volume 91.3 fL (80-100); Mean Platelet Volume 10.4 fL (7.4-10.4); Platelet Count 252 K/uL (130-400); RDW Coefficient of Variation 15.8 % (11.5-14.5); RDW Standard Deviation 52.6 fL (36.4-46.3); Red Blood Count 3.67 M/uL (4.2-5.4); White Blood Count 10.58 K/uL (4.8-10.8)
[2021-08-22 11:39] LABS: Albumin Level 1.8 gm/dl (3.4-5.0); BUN Creatinine Ratio 17.7 (10-20); Calcium 8.5 mg/dl (8.5-10.1); Creatinine Clr Calc Pharmacy 115.2 ml/min; Est GFR (African American) 112.7 ml/min; Est GFR (Non-African American) 97.3 ml/min; Phosphorus 2.9 mg/dl (2.5-4.9); Potassium 3.9 mmol/L (3.5-5.1)
[2021-08-22] MEDS: ENOXAPARIN INJ 40 MG/0.4 ML SYR SQ SCH (13:04)
[2021-08-22] MEDS: LACTATED RINGER'S 1,000 ML IV SCH (13:04)
[2021-08-22] MEDS ORDERED: Nursing to Pharmacy Communication SCH (18:30)
[2021-08-23] MEDS: LACTATED RINGER'S 1,000 ML IV SCH (01:46)
--- NOTE | 2021-08-23 07:30 | Hospitalist Progress Note ---
Date of Service August 23, 2021 Assessment & Plan (1) Acute alteration in mental status: Plan: Presented 08/17 with acute confusion Suspect multifactorial 2/2 hyponatremia (126) due to poor intake at home, iatrogenic thyrotoxicosis (TSH 0.009, fT4 2.28) Baseline cognitive impairment in s/o underlying dementia & psychiatric disease CTH 08/17 unremarkable (notes chronic microvascular ischemia). UA & CXR w/o evidence of infection. Utox negative. Psych eval 08/19: Suspect medical disease is main contributor. Recommend avoiding antipsychotics, uptitrate propranolol PRN restlessness/anxiousness if BP/HR allow - Continue to monitor for ongoing improvement- suspect she is back to her baseline at present - Ativan & Olanzapine PRNs available but will plan to DC if continues to not require. Want to avoid use as much as possible to avoid precipitating delirium - Unsafe to live alone - CM working on placement - daughter & patient agreeable to assisted living placement - While she is oriented, and demonstrates some basic reasoning, she has not been able to make consistent choices regarding her medical care (variably accepting/refusing vaccine, SNF placement) - therefore I do not feel she has capacity to make her own medical decisions. I do feel we should continue to consider her input but ultimate decision making should fall to her daughter (next of kin) at present. Present on Admission?: Yes (2) Acute hyponatremia: Plan: Na 126 on presentation 08/17 Suspect hypovolemic hyponatremia (high Uosm & Lou 08/19) given poor PO intake at home in s/o baseline cognitive impairment & lack of caregiver support Improved to normal s/p IV fluids - RESOLVED - Monitor Na daily. Can switch to q72h if remains normal after mIVF stopped today - DC mIVF given improved PO intake - Immigration Investigator referral - supplements Present on Admission?: Yes (3) Iatrogenic thyrotoxicosis: Plan: On admission TSH 0.009, fT4 2.28. fT4 now normalized Prior home med: 125mcg levothyroxine Denies having taken extra doses - Holding home levothyroxine at present - suspect will need to hold on discharge & monitor TSH/fT4 outpatient to determine if needs resumed in future - Propranolol 10mg BID Present on Admission?: Yes (4) Memory impairment: Plan: Neurology eval 08/2019 suggestive of short term memory impairment & confusion. Anxiety behavior, possible vascular dementia. 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 Admission and Anticipated Discharge Date Admission Date: August 17, 2021 Subjective Cindy Almonte is an 85F admitted 08/17/21 for confusion and increased anxiety found to have iatrogenic thyrotoxicosis and hyponatremia to 126. Her PMH is notable for bipolar depression, anxiety, cognitive impairment, hypothyroidism, hypertension, history of trauma. Yesterday 08/22 - Willingham DC'd, PVRs in 300s-400s since (in s/o mIVF) Today 08/23 - VSS no ongoing tachycardia or HTN - I/O net neutral since admission - AM labs stable w/ mild hypokalemia 3.4, fT4 normalized - Mental status: AOX3 (oriented to self/month/year/hospital). Repeatedly questioning whether she had "the operation" (referring to COVID vaccine). Seems more disorganized/impulsive today. Last required PRN Ativan 08/20 at 00:20 Last required PRN olanzapine 08/17 - Urinating frequently (improving since mIVF stopped this morning) Cindy is agreeable to COVID vaccination today; however, I do not feel she has capacity to make her own medical decisions as she has not been able to maintain a consistent decision with reasoning throughout her hospitalization. Spoke to her daughter Richar (who lives in [place]) on phone. Reports Cindy has cognitively declined in past 3 years & she doesn't feel she is safe to be at home (even with caregiver support). Richar is agreeable to Cindy receiving the COVID vaccine while in the hospital. She verbally confirmed this with myself as well as bedside nurse assistant track coach Stacy Barton. She prefers J&J due to 1 dose only but is ok with others. She does note her mom has strong reactions to vaccines but no known history of allergic reaction to vaccines. Review of Systems Review of Systems: No CP RIVAS SOB abdominal pain Peeing a lot Chronic blurry vision (wears reading glasses) Physical Exam Physical Exam: General: Well appearing, lying in bed comfortably HEENT: poor dentition, several missing teeth CV: Normal rate, regular rhythm. No murmurs. Resp: Breathing comfortably on room air. Lungs clear to auscultation bilaterally. No wheezes, crackles, or rhonchi Abd: Soft, nontender, nondistended, BS active Ext: Warm, well perfused. No edema. Slight chronic venous stasis changes : W[place] in place Mental: oriented to self/month/yea/location. some disorganized thinking (as per HPI) Eyes: Pupils equal & round Results & Data Results & Data ([facility]) Vital Signs (Past 12 Hours) Vital Signs Temp Pulse Resp BP Pulse Ox 08/23/21 07:20 99.0 F 83 18 137/76 97 PG Care Time/CCT Total # of Minutes Spent Total Time Spent with Patient: Total time spent is greater than 50% in coordination of care (as documented) at patient's floor/unit and/or counseling patient: Coding Level of Care Code 92793 Subseq Hosp Care Lvl 2 Diagnoses Acute alteration in mental status R41.82 Acute hyponatremia E87.1 Iatrogenic thyrotoxicosis E05.80 Memory impairment R41.3 Hypothyroidism E03.9
[2021-08-23 07:31] LABS: Hematocrit (blood only) 34.8 % (37-47); Hemoglobin 11.7 g/dL (12.0-16.0); Mean Corpuscular Hemoglobin 30.7 pg (25-34); Mean Corpuscular Hgb Conc 33.6 g/dL (32-36); Mean Corpuscular Volume 91.3 fL (80-100); Mean Platelet Volume 10.1 fL (7.4-10.4); Platelet Count 259 K/uL (130-400); RDW Coefficient of Variation 15.6 % (11.5-14.5); RDW Standard Deviation 51.8 fL (36.4-46.3); Red Blood Count 3.81 M/uL (4.2-5.4); White Blood Count 9.71 K/uL (4.8-10.8)
[2021-08-23 07:48] LABS: Albumin Level 1.8 gm/dl (3.4-5.0); BUN Creatinine Ratio 20.7 (10-20); Calcium 8.5 mg/dl (8.5-10.1); Creatinine Clr Calc Pharmacy 118.3 ml/min; Est GFR (African American) 113.7 ml/min; Est GFR (Non-African American) 98.1 ml/min; Potassium 3.4 mmol/L (3.5-5.1)
[2021-08-23 07:56] LABS: Phosphorus 3.3 mg/dl (2.5-4.9); T4 Free Thyroxine 0.93 ng/dl (0.8-1.6)
[2021-08-23] MEDS: ASPIRIN 81 MG ECTAB PO SCH (08:51)
[2021-08-23] MEDS: SENNA 8.6 MG TAB PO SCH (08:52)
[2021-08-23] MEDS: PROPRANOLOL HCL 10 MG TAB PO SCH ×2 (09:43→21:01)
[2021-08-23] MEDS ORDERED: COVID-19 VAC,AD26(JANSSEN)/PF 0.5 ML SYR IM ONE (10:09)
[2021-08-23] MEDS ORDERED: POTASSIUM CHLORIDE PWD 20 MEQ PACK PO ONE (10:11)
[2021-08-23] MEDS: ENOXAPARIN INJ 40 MG/0.4 ML SYR SQ SCH (12:45)
[2021-08-24] MEDS: MELATONIN 3 MG TAB PO PRN ×2 (00:23→20:07)
--- NOTE | 2021-08-24 07:14 | Hospitalist Progress Note ---
Date of Service August 24, 2021 Assessment & Plan (1) Acute alteration in mental status: Plan: RESOLVED Presented 08/17 with acute confusion. Suspect multifactorial 2/2 hyponatremia (126) due to poor intake at home, iatrogenic thyrotoxicosis (TSH 0.009, fT4 2.28) Baseline cognitive impairment in s/o underlying dementia & psychiatric disease CTH 08/17 unremarkable (notes chronic microvascular ischemia). UA & CXR w/o evidence of infection. Utox negative. Psych eval 08/19: Suspect medical disease is main contributor. Recommend avoiding antipsychotics, uptitrate propranolol PRN restlessness/anxiousness if BP/HR allow Seems to be back to baseline since ~08/22/21 - Ativan & Olanzapine PRNs available in case of severe agitation but has not required in several days. Want to avoid use as much as possible to avoid precipitating delirium - Unsafe to live alone - CM working on placement - daughter very interested in assisted living placement (patient variably agreeable) - While she is typically orientedx2-3, and is able to demonstrate some basic reasoning, she has not been able to make consistent choices regarding her medical care (variably accepting/refusing SNF placement) - therefore I do not feel she has capacity to make her own medical decisions, specifically regarding post-hospital disposition. I do feel we should continue to consider her input in decision making but ultimate decision making should fall to her daughter (next of kin) at present. Continue to reassess capacity daily. May have capacity to make certain medical choices (e.g. accepting/refusing meds). Present on Admission?: Yes (2) Acute hyponatremia: Plan: RESOLVED Na 126 on presentation 08/17 Suspect hypovolemic hyponatremia (high Uosm & Lou 08/19) given poor PO intake at home in s/o baseline cognitive impairment & lack of consistent caregiver support Home supplements may have also contributed - caregiver will bring them in for us to look through Improved to normal s/p IV fluids - Monitor Na q72h (may be able to switch to weekly) - Chief Deputy Court Clerk referral - supplements (3) Iatrogenic thyrotoxicosis: Plan: On admission TSH 0.009, fT4 2.28. fT4 now normalized Prior home med: 125mcg levothyroxine Denies having taken extra doses. Home supplements may have contributed - caregiver will bring them in for us to look through - Hold home levothyroxine 125mcg - reassess fT4 in 1 week (~08/29) to see if thyroid supplementation needs resumed. TSH will take weeks-mos to normalize - Propranolol 10mg BID (continue despite resolution of thyrotoxicosis given anxiety & high normal BPs) (4) Memory impairment: Plan: Neurology eval 08/2019 suggestive of short term memory impairment & confusion. Anxiety behavior, possible vascular dementia. Progressive decline in baseline over 3y per daughter Richar. 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 Unsafe to return home w/o 24hr supervision PT/OT evaluating J&J administered 08/23/21 Admission and Anticipated Discharge Date Admission Date: August 17, 2021 Subjective Cindy Almonte is an 85F admitted 08/17/21 for confusion and increased anxiety found to have iatrogenic thyrotoxicosis and hyponatremia to 126 likely due to poor intake at home. With correction of the above medical concerns, her mental status improved to apparent baseline; she however continues to have fluctuations in reasoning and orientation which support a lack of capacity for ongoing medical decision making. Her PMH is notable for bipolar depression, anxiety, cognitive impairment, hypothyroidism, hypertension, history of trauma. Yesterday 08/22 - mIVF stopped - received J&J COVID vaccine Today 08/23 - Afebrile normotensive no tachycardia - AM labs Na stable - mild hypokalemia persists (pt only able to take part of K supplement yesterday) - RN notes frequent urination (post void bladder scans up to ~400cc at times) - Mental status: AOX3 (oriented to self/age/month/year/hospital/president). Mildly agitated (really wants to go home & be at her apartment) but redirectable Last required PRN Ativan 08/20 at 00:20 Last required PRN olanzapine 08/17 As previously documented, Cindy is oriented and able to demonstrate some basic reasoning but is not able to make consistent choices with clear understanding of risk/benefit (fluctuates by the day). Therefore I do not feel she retains capacity to make her own medical decisions, specifically in regards to her disposition following hospitalization. Spoke with Daughter Richar on phone to give updates Received call from caregiver Mildred at [facility] - she reports they provide care 12h/d. Cindy often becomes very anxious about things (COVID, sanitation, her health) and will occasionally ask them not to come at those times or will come to the ED after reporting to caregivers that she's "going to this week". Also report she eats poorly most of the time Review of Systems Review of Systems: No CP RIVAS SOB abdominal pain dysuria Endorses chronic muscle aches all over that will get better once she has her massager from home Endorses frequent urination is at her baseline, she wears diapers at home Physical Exam Physical Exam: General: Well appearing, lying in bed comfortably HEENT: poor dentition, several missing teeth CV: Normal rate, regular rhythm. Occasional ectopy. No murmurs. Resp: Breathing comfortably on room air. Lungs clear to auscultation bilaterally. No wheezes, crackles, or rhonchi Abd: Soft, nontender, nondistended Ext: Warm, well perfused. No edema. Slight chronic venous stasis changes Mental: oriented to self/age/month/year/location. mild agitation (as per HPI) Eyes: Pupils equal & round PG Care Time/CCT Total # of Minutes Spent Total Time Spent with Patient: Total time spent is greater than 50% in coordination of care (as documented) at patient's floor/unit and/or counseling patient: Coding Level of Care Code 78854 Subseq Hosp Care Lvl 1 Diagnoses Acute alteration in mental status R41.82 Acute hyponatremia E87.1 Iatrogenic thyrotoxicosis E05.80 Memory impairment R41.3 Hypothyroidism E03.9
[2021-08-24 07:55] LABS: Albumin Level 1.8 gm/dl (3.4-5.0); BUN Creatinine Ratio 26.5 (10-20); Calcium 8.4 mg/dl (8.5-10.1); Creatinine Clr Calc Pharmacy 121.6 ml/min; Est GFR (African American) 114.8 ml/min; Potassium 3.4 mmol/L (3.5-5.1)
[2021-08-24] MEDS: ACETAMINOPHEN 325 MG TAB PO PRN ×2 (08:57→16:28)
[2021-08-24] MEDS: PROPRANOLOL HCL 10 MG TAB PO SCH ×2 (08:58→20:07)
[2021-08-24] MEDS: ASPIRIN 81 MG ECTAB PO SCH (08:58)
[2021-08-24] MEDS: SENNA 8.6 MG TAB PO SCH ×2 (08:58→09:13)
[2021-08-24] MEDS: ENOXAPARIN INJ 40 MG/0.4 ML SYR SQ SCH (11:56)
[2021-08-25] MEDS: MELATONIN 3 MG TAB PO PRN (00:27)
[2021-08-25] MEDS: OLANZapine 5 MG TABLET PO PRN (01:02)
[2021-08-25] MEDS: LORazepam 0.5 MG/1 ML VIAL IV PRN (03:32)
--- NOTE | 2021-08-25 07:18 | Hospitalist Progress Note ---
Date of Service August 25, 2021 Assessment & Plan (1) Acute alteration in mental status: Plan: RESOLVED Presented 08/17 with acute confusion. Suspect multifactorial 2/2 hyponatremia (126) due to poor intake at home, iatrogenic thyrotoxicosis (TSH 0.009, fT4 2.28) Baseline cognitive impairment in s/o underlying dementia & psychiatric disease CTH 08/17 unremarkable (notes chronic microvascular ischemia). UA & CXR w/o evidence of infection. Utox negative. Psych eval 08/19: Suspect medical disease is main contributor. Recommend avoiding antipsychotics, uptitrate propranolol PRN restlessness/anxiousness if BP/HR allow Seems to be back to baseline since ~08/22/21 - Olanzapine PRN available in case of severe agitation. Avoid use as much as possible to avoid precipitating delirium - CM & daughter Richar working on placement - daughter very interested in assisted living placement (patient variably agreeable but generally states she wants to go home to her apartment) - While she is typically orientedx2-3 and is able to demonstrate some basic reasoning, she has not been able to make consistent choices regarding her medical care (variably accepting/refusing assisted living) and I have concerns about her ability to do well at home (poor nutrition, hyponatremic on admission). I do not feel she has capacity to make her own medical decisions, specifically regarding post-hospital disposition. I do feel we should continue to consider her input in decision making but ultimate decision making should fall to her daughter (next of kin) at present. Continue to reassess capacity daily. May have capacity to make certain medical choices (e.g. accepting/refusing meds). - Disposition to an assisted living facility will likely require a prolonged wait - will discuss this with Michi Wu today to consider risks/benefits of keeping her in hospital until placement vs going home to apartment w/ home care in the interim. Difficult situation. (2) Acute hyponatremia: Plan: RESOLVED Na 126 on presentation 08/17. Improved to normal s/p IV fluids Suspect hypovolemic hyponatremia (high Uosm & Lou 08/19) given poor PO intake at home in s/o baseline cognitive impairment & lack of consistent caregiver support Home supplements may have also contributed - caregiver will bring them in for us to look through - Monitor Na q72h (may be able to switch to weekly) - Full Stack Software Engineer referral - supplements (3) Iatrogenic thyrotoxicosis: Plan: On admission TSH 0.009, fT4 2.28. fT4 now normalized Prior home med: 125mcg levothyroxine Denies having taken extra doses. Home supplements may have contributed - caregiver will bring them in for us to look through - Hold home levothyroxine 125mcg - reassess fT4 08/26 to see if thyroid supplementation needs resumed. TSH will take weeks-mos to normalize (4) Memory impairment: Plan: Neurology eval 08/2019 suggestive of short term memory impairment & confusion. Anxiety behavior, possible vascular dementia. Progressive decline in baseline over 3y per daughter Richar. 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 Higher values typically in setting of agitation - Continue Propranolol 10mg BID given concomitant benefits for anxiety & tremor Plan: Diet: Regular + supplements DVT ppx: Lovenox qD Bowel regimen: Senna daily Code: Full Dispo: Assisted living, CM working with daughter to arrange Came from [address] apts for disabled persons/seniors with 12h/d home care ([facility]). Unsafe to return home w/o 24hr supervision PT/OT evaluating J&J administered 08/23/21 Admission and Anticipated Discharge Date Admission Date: August 17, 2021 Berny Almonte is an 85F admitted 08/17/21 for confusion and increased anxiety found to have iatrogenic thyrotoxicosis and hyponatremia to 126 likely due to poor intake at home. With correction of the above medical concerns, her mental status improved to apparent baseline; she however continues to have fluctuations in reasoning and orientation which support a lack of capacity for complex m edical decision making such as post-discharge disposition. Her PMH is notable for bipolar depression, anxiety, cognitive impairment, hypothyroidism, hypertension, history of trauma. Today 08/25 - Afebrile normotensive (intermittent elevated BPs) no tachycardia - No AM labs today - Disoriented overnight (moved rooms). Sleeping poorly - given melatonin/ativan/olanzapine Last required PRN Ativan last night 08/25 ad 0330 Last required PRN olanzapine last night 08/25 at 0100 - Mental status: AOX3 (oriented to self/age/month/year/hospital). Thought we were in [place]. Able to state if there were emergencies at home she would call her caregivers or 911. Feels she is safe & able to care for herself at home. Completes her own ADLs (hygiene/bathing). Doesn't cook - mostly only eats yogurt/pedialyte. Caregivers help with grocery shopping & house chores/cleaning. - Expressing strong desire to go home to her apartment, doesn't feel she needs assisted living - Pleasant. Frequently calling out for caregivers Review of Systems Review of Systems: No CP RIVAS SOB abdominal pain dysuria Able to urinate & have BMs without difficulty Endorses chronic muscle aches all over that will get better once she has her massager from home Physical Exam Physical Exam: General: Well appearing, lying in bed comfortably HEENT: poor dentition, several missing teeth CV: Normal rate, regular rhythm. Occasional ectopy. No murmurs. Resp: Breathing comfortably on room air. Lungs clear to auscultation bilaterally. No wheezes, crackles, or rhonchi Abd: Soft, nontender, nondistended Ext: Warm, well perfused. No edema. Slight chronic venous stasis changes. Tender to touch. Mental: oriented to self/age/month/year/location. pleasant & conversant Eyes: Pupils equal & round Results & Data Results & Data ([facility]) Vital Signs (Past 12 Hours) Vital Signs Temp Pulse Resp BP Pulse Ox 08/24/21 23:45 97.7 F 82 16 142/65 H 96 08/24/21 21:54 97.7 F 80 18 130/68 96 PG Care Time/CCT Total # of Minutes Spent Total Time Spent with Patient: Total time spent is greater than 50% in coordination of care (as documented) at patient's floor/unit and/or counseling patient: Coding Level of Care Code 12783 Subseq Hosp Care Lvl 1 Diagnoses Acute alteration in mental status R41.82 Acute hyponatremia E87.1 Iatrogenic thyrotoxicosis E05.80 Memory impairment R41.3 Hypothyroidism E03.9 Hypertension I10
[2021-08-25 07:55] VITALS: TEMP 97.3; O2SAT 94
[2021-08-25] MEDS: PROPRANOLOL HCL 10 MG TAB PO SCH (09:51)
[2021-08-25] MEDS: SENNA 8.6 MG TAB PO SCH (09:52)
[2021-08-25] MEDS ORDERED: TAMSULOSIN HCL 0.4 MG CAP PO SCH (12:30)
[2021-08-25 13:20] LABS: Appearance Urine Cloudy (Clear); Bacteria Urine Automated 1+ (Negative); Bilirubin Urine Negative (Negative); Blood Urine Negative (Negative); Color Urine Yellow; Glucose Urine UA Negative (Negative); Ketones Urine Negative (Negative); Leukocyte Esterase Urine Trace (Negative); Nitrite Urine Positive (Negative); Protein Urine Negative (Negative); RBC Urine Automated 0-4 /hpf (0-4); Specific Gravity Urine 1.009 (1.000-1.030); Urobilinogen Urine Negative (Negative); pH Urine 6.5 (4.5-7.5)
[2021-08-25 13:42] LABS: Mucus Urine Present (None Prsent)
[2021-08-25] MEDS ORDERED: NITROFURANTOIN MONOHYDRATE 100 MG CAP PO SCH (13:55)
[2021-08-25] MEDS: ENOXAPARIN INJ 40 MG/0.4 ML SYR SQ SCH (14:30)
--- NOTE | 2021-08-25 15:53 | Discharge Summary ---
Date of Service August 25, 2021 Admission HPI Per Admitting Provider Cindy is a 85-year-old female the past medical history of bipolar, anxiety, memory impairment, hypothyroidism, hypertension who presented by ambulance after she felt like her body "stopped functioning "and had increased anxiety/agitation. Per EMS and emergency department report when patient was found had a wall filled with newspaper articles with disorganized writing, patient difficult to coax out of the bathroom and declined to answer further questions. Experience picking behavior blankets when evaluated by ER. Was seen in 08/2019 by neurology for tremor and was recommended for SSRI treatment versus beta-lizet/propranolol for secondary benefit. Concern at that appointment was expressed by the patient for seizures, but she did not show any epileptic movements and EEG was not done. Patient was noted to have short- term memory impairment with confusion and intermittent behavioral disturbance and agitation. History somewhat limited by cognitive status. She is oriented to name and year but not place and thought process is somewhat circumferential. She reports she has been living at home with 8 hours of caregiver help daily up until last week when her caregivers were no longer able to come in due to her unvaccinated status. She reports she was scheduled to get the Covid vaccine, but is not sure when, and would be okay to get the vaccine while she is in the hospital. She reports that she felt her body felt weak at home, does not give additional history for this. In discussing her medications she reports her thyroid medicine was prescribed 2 years ago, has not been adjusted or checked since then. She reports she takes 1 pill of this daily and that it is the only medicine she takes. She reports that she "is allergic to all MD medicines, but if it is from other nature it is good for her body and she will take it ". She denies auditory/visual hallucinations. She denies chest pain, chest pressure at time of assessment, no palpitations at time of assessment, endorses that she has felt intermittently like she has had a racing heart but is not able to quantify how often this is occurred. Denies shortness of breath, dyspnea. Per chart review has a history of bipolar/anxiety, patient denies this does not offer further history. Ports she has not been on medications for this. Reports that she would want all measures taken to bring her back would want CPR/intubation both for declining status or arrest. Remaining history somewhat difficult due to tangential thought process. Requires frequent redirection, and perseverates on trying to set up/get out of bed. Denies SI/HI. Medical History: Reviewed, limited by cognitive status Medications: Reviewed, limited by cognitive status Surgical History: Reviewed, limited by cognitive status Allergies: Reviewed, limited by cognitive status Social History: Denies tobacco, alcohol, recreational substance use. Lives at home with caregivers, no caregivers in last week. Code Status: Full Code, discussed w/ pt Principal Diagnosis Altered mental status due to Iatrogenic thyrotoxicosis, Acute hyponatremia Discharge Exam General: Well appearing, lying in bed comfortably HEENT: poor dentition, several missing teeth CV: Normal rate, regular rhythm. Occasional ectopy. No murmurs. Resp: Breathing comfortably on room air. Lungs clear to auscultation bilaterally. No wheezes, crackles, or rhonchi Abd: Soft, nontender, nondistended Ext: Warm, well perfused. No edema. Slight chronic venous stasis changes. Tender to touch. Mental: oriented to self/age/month/year/location. pleasant & conversant. poor reasoning Eyes: Pupils equal & round Discharge Data Allergies Allergy/AdvReac Type Severity Reaction Status Date / Time desflurane Allergy Severe "LOWERS Verified 08/23/21 09:35 B/P" enflurane Allergy Severe "LOWERS Verified 08/23/21 09:35 B/P" halothane Allergy Severe "LOWERS Verified 08/23/21 09:35 B/P" isoflurane Allergy Severe "LOWERS Verified 08/23/21 09:35 B/P" Penicillins Allergy Severe HIVES Verified 08/17/21 12:48 sevoflurane Allergy Severe "LOWERS Verified 08/23/21 09:35 B/P" Consultations 08/17/21 14:08 ED Decision to Admit Stat 08/19/21 10:12 Consult Psychiatry Routine Ordered Studies 08/17/21 10:54 CT head/brain wo con Stat Hospital Course (1) Acute alteration in mental status: RESOLVED Presented 08/17 with acute confusion. Suspect multifactorial 2/2 hyponatremia (126) due to poor intake at home, iatrogenic thyrotoxicosis (TSH 0.009, fT4 2.28) Baseline cognitive impairment in s/o underlying dementia & psychiatric disease CTH 08/17 unremarkable (notes chronic microvascular ischemia). UA & CXR w/o evidence of infection. Utox negative. Psych eval 08/19: Suspect medical disease is main contributor. Recommend avoiding antipsychotics, uptitrate propranolol PRN restlessness/anxiousness if BP/HR allow Seems to be back to baseline since ~08/22/21 Given PRN olanzapine &/or lorazepam for severe agitation (only required rarely, not to be continued after hospital discharge) While she is typically orientedx2-3 and is able to demonstrate some basic reasoning, She has not been able to make consistent choices regarding her medical care (variably accepting/refusing post-acute facility placement) and I have concerns about her ability to do well at home (poor nutrition, hyponatremic on admission). I do not feel she has capacity to make her own medical decisions, specifically regarding post-hospital disposition. I do feel we should continue to consider her input in decision making but ultimate decision making should fall to her daughter (next of kin) at present May have capacity to make certain medical choices (e.g. accepting/refusing meds). (2) Acute hyponatremia: RESOLVED Na 126 on presentation 08/17. Improved to normal s/p IV fluids Suspect hypovolemic hyponatremia (high Uosm & Lou 08/19) given poor PO intake at home in s/o baseline cognitive impairment & lack of consistent caregiver support Home supplements may have also contributed - will have her review them with PCP before resuming RFP to monitor Na 1 week post discharge Encourage good nutrition (3) Iatrogenic thyrotoxicosis: Admission TSH 0.009, fT4 2.28. fT4 now normalized Prior home med: 125mcg levothyroxine Denies having taken extra doses. Home supplements may have contributed - will have her review them with PCP before resuming Hold home levothyroxine 125mcg - reassess fT4 08/29, if low, resume lower dose thyroid supplementation (75mcg levothyroxine). TSH will take weeks-mos to normalize (4) Memory impairment: Neurology eval 08/2019 suggestive of short term memory impairment & confusion. Anxiety behavior, possible vascular dementia. Known history of bipolar disorder and anxiety/paranoia and PTSD at baseline Progressive decline in baseline over 3y per daughter Richar. 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 Reassess fT4 08/29, if low, resume lower dose thyroid supplementation (75mcg le vothyroxine). TSH will take weeks-mos to normalize (6) Hypertension: BP 140-170s in hospital. Higher values typically in setting of agitation - Continue Propranolol 10mg BID given concomitant benefits for anxiety & tremor (7) Urinary retention with incomplete bladder emptying: Urinary catheter placed on admission. Removed 08/22. Replaced 08/25 due to PVRs >500. Repeat UA at time of replacement showed evidence of UTI (despite no symptoms of dysuria/lower abdominal pain) however given clemens replacement opted to treat. - Macrobid 100mg BID x 7 days for UTI (ends 09/01 AM) - Tamsulosin 0.4mg daily to promote complete emptying/increase likelihood of successful void trial - Urology follow up in 1 week s/p discharge for clemens void trial (8) UTI (urinary tract infection): Urinary catheter placed on admission 08/17. UA at that time without evidence of infection. Clemens removed 08/22. Clemens replaced 08/25 due to persistently elevated PVRs 300-500, eventually worsening to 800cc. Repeat UA at time of clemens replacement 08/25 showed evidence of UTI w/ leuk esterase nitrites wbcs & bacteria & mucus (despite no symptoms of dysuria/lower abdominal pain) however given need clemens replacement opted to treat. - Macrobid 100mg BID x 7 days for UTI (ends 09/01 AM) - Urology follow up in 1 week s/p discharge for clemens void trial TRANSITIONS OF CARE J&J COVID vaccine administered 08/23/21. Should have 2nd dose/booster on or around 10/21/21 LAB FOLLOW UP - Check Free T4 ~08/29 - if low, plan to resume levothyroxine 75mcg daily (previously on 125mcg) - Check Renal function panel ~08/29 to follow up sodium for stability CLINICAL FOLLOW UP - Urology follow up in 1 week for clemens removal/void trial - Primary care follow up with Rochelle Paez MEDICATION CHANGES - STOP taking levothyroxine until follow up blood tests in 1 week, may need to be restarted at lower dose at that time - STOP all supplements until follow up with primary care doctor to ensure they are not interacting w/ other meds or causing hyponatremia - START tamsulosin 0.4mg once daily to help with urination - START macrobid 100mg twice daily for UTI (started 08/25/21, to continue for 7 days, last dose 09/01/21 morning) - START propranolol 10mg twice daily (for anxiety, tremors, and high blood pressure/heart rates) Total Time Total Time Spent Total Time Spent (In Minutes): 40 minutes Total Time Includes: Examination of the Patient, Discharge Planning, Medication Reconciliation and Communication With Other Providers Discharge Plan Discharge Items Patient Disposition: Transfer Inpatient Rehab Fac Reason For Visit: ?MED THYROTOXICOSIS, HYPONATREMIA Discharge Diagnosis: Iatrogenic thyrotoxicosis. Hyponatremia due to poor oral intake (High thyroid hormone. Low sodium) Condition on Discharge: Good Activity: Resume your previous activity Non-emergency contact: Primary Care Provider Call non-emergency contact if: you have any medication questions Follow-up/Referrals: Robbie Harris MD [Physician] - (For incomplete voiding requiring clemens during hospitalization) Rochelle Paez CRNP [Primary Care Provider] - Diet: Regular Ambulatory Orders: Renal Function Panel (Routine) Timeframe: 20210829 Location: Determined by Patient Ordered By: Angela Swift T4 Free Thyroxine (Routine) Timeframe: 20210829 Location: Determined by Patient Ordered By: Angela Swift Addtl Attending Provider Instructions: When you came to the hospital, your sodium (salt) level was low and your thyroid level was too high. We stopped your thyroid medicine. Please have a blood test drawn in about 1 week (~08/29) to follow up on your thyroid level, if it becomes low, your thyroid medicine will need to be resumed. Please also have a blood test at that time to ensure your sodium level remains normal. Both of these problems could also be related to supplements you take at home. Please take all supplements to your follow up visit with your primary care doctor to determine if they are safe to restart. We also started you on a medicine called propranolol - it helps with blood pressure, anxiety, and tremors. You were not able to fully empty your bladder while you were in the hospital, so we had to place a urinary catheter to drain your urine. Your urine showed signs of infection, so we began treatment with an antibiotic which you will continue after leaving the hospital. We also started you on a medicine called tamsulosin to see if this helps you to fully empty your bladder when you pee. In about a week, you should follow up with urology to have the catheter removed and see if you are able to urinate and fully empty your bladder. MEDICATION CHANGES - STOP taking levothyroxine until follow up blood tests in 1 week, may need to be restarted at that time - STOP all supplements until follow up with your primary care doctor - START tamsulosin 0.4mg once daily to help with urination - START macrobid 100mg twice daily (started 08/25/21, to continue for 7 days, last dose 09/01/21 morning) - START propranolol 10mg twice daily (for anxiety, tremors, and high blood pressure/heart rates) Pending Studies at Discharge: Yes Studies:: Urine Culture Stand-Alone Forms: My [facility] [employer] Skilled Items Patient informed of condition?: Yes DNR: No Discharge Level of Care: Acute rehab Communicable Disease: No Discharge Prognosis: Improving Lines: None Urinary Catheter: Yes Medications and DC Order Prescriptions: New nitrofurantoin monohyd/m-cryst 100 mg Capsule 100 mg PO BID Qty: 14 RF: 0 tamsulosin 0.4 mg Capsule 0.4 mg PO QAM Qty: 30 RF: 0 propranolol 10 mg Tablet 10 mg PO BID Qty: 60 RF: 0 acetaminophen 325 mg Tablet 650 mg PO Q6 PRN (Reason: pain) Qty: 30 RF: 0 sennosides [Senokot] 8.6 mg Tablet 8.6 mg PO QAM Qty: 30 RF: 0 melatonin 3 mg Tablet 3 mg PO PM Qty: 30 RF: 0 Discontinued levothyroxine 125 mcg tablet 125 mcg PO QAM RF: 0 Supplements See Rx Instructions .ROUTE .COMPLEX RF: 0 Discharge Orders: Discharge Order (Routine); Ordered 08/25/21 Ordered By: Angela Lerma/Other Patient Handouts: What is Delirium? Admission Data Admit Date/Time: 08/17/21 15:03 Attending Provider: Angela Swift Admit Provider: Julian Olguin Primary Care Provider: Rochelle Paez Other Providers: Homer Martinez ; Camilo Sen Paul ; Diane Prado ; April Ponce ; Jackelyn Ponce ; Julian Saravia ; [facility] Coding Level of Care Code D/C DAY MANAGEMENT >30 MINS Diagnoses Acute alteration in mental status R41.82 Acute hyponatremia E87.1 Iatrogenic thyrotoxicosis E05.80 Memory impairment R41.3 Hypothyroidism E03.9 Hypertension I10 Urinary retention with incomplete bladder emptying R33.9 UTI (urinary tract infection) N39.0 Time Spent (min) 40
[2021-08-25 16:22] VITALS: BP 144/66; PULSE 82
[2021-08-25] MEDS ORDERED: MELATONIN 3 MG TAB PO SCH (19:00)
--- NOTE | 2021-09-08 09:37 | Coding Query ---
CODING QUERY To promote full compliance with coding requirements relating to patient care, provider participation is requested in all cases of clothing trades workers uncertainty. Please assist us with the question(s) below: Coding Question(s): Patient admitted with thyroxicosis. DS documents UTI, not present at admission. Day of admission clemens placed - U/A negative at that time. Clemens replaced 1/3 - with urine analysis positive for UTI. Please document, if known or suspected, the etiology of the infection. Thanks for your help! Milton Bean [facility] Physician's Response(s): Suspect catheter associated UTI given initial UA without infection, clemens placed on arrival followed by urinary retention with evidence of infection on UA after removal of initial clemens and requiring clemens replacement and antibiotic treatment. Angela Swift MD 09/10/21 Principal Diagnosis: "that condition established after study, to be chiefly responsible for occasioning the admission of the patient to the hospital for care." Co-Existing Principal Diagnosis: "when two or more diagnoses equally meet the criteria for principal diagnosis as determined by the circumstances of admission, diagnostic work up, and/or therapy provided, and the Alphabetic Index, Tabular List, or another coding guideline does not provide sequencing direction, any one of the diagnoses may be sequenced first." "When the physician has documented what appears to be a current diagnosis in the body of the record, but has not included the diagnosis in the final diagnostic statement, the physician should be asked whether the diagnosis should be added." (Source Coding Clinic 2 QTR90. p3-4) DILIP
== END 2021-08-25 16:53 | DRG 644 ==
LOC: ED 10:23 → EDINP 15:03 → SUATTDRO 15:03 → 2N 08-18 18:38 → 3W 08-24 23:42